=== PATIENT | female | born 2000 | race Caucasian/White ===

== ENCOUNTER 2024-05-12 10:02 | Outpatient (CLI) | payer OTHER, SELFPAY ==
--- NOTE | ~2024-05-12 | US_ITS ---
EXAMINATION: US OB <=14 wk fetus w TV DATE: 05/12/2024 10:23 INDICATION: Amenorrhea TECHNIQUE: Real-time pelvic ultrasound utilizing both a transvaginal and transabdominal probe was pe rformed. The interpreting radiologist was not present for the study. COMPARISON: None. FINDINGS: The uterus measures 9.4 x 6.2 x 4.9 cm. There is an intrauterine gestational sac. A yolk sac and fet al pole are identified. The crown rump length measures 2.4 cm, which correlates with an estimated ges tational age of 9 weeks and 0 days. heart motion is identified measuring 174 beats per minute ( bpm) by M-mode Doppler. The bilateral ovaries are not visualized. There is no free fluid in the pelvi s. IMPRESSION: 1. Single living fetus with heart rate of 174 bpm. 2. Gestational age by ultrasound of 9 weeks 0 day(s) +/- 6 day(s) with ultrasound estimated date of delivery (TONY) of 12/15/2024. Reviewed, dictated and finalized at location A. IMPRESSION: 1. Single living fetus with heart rate of 174 bpm. 2. Gestational age by ultrasound of 9 weeks 0 day(s) +/- 6 day(s) with ultraso und estimated date of delivery (TONY) of 12/15/2024.
== END 2024-05-12 10:03 | disposition home or self-care (01) ==
LOC: GOSHIMG 10:03
PROVIDERS: PCP Nurse Practitioner Obstetrics & Gynecology; Visit Provider Nurse Practitioner Obstetrics & Gynecology
DX: N91.2 Amenorrhea, unspecified (principal); Z3A.09 9 weeks gestation of pregnancy
CPT/HCPCS: 76801; 76817

== ENCOUNTER 2024-06-09 16:24 | Outpatient (CLI) | payer OTHER, SELFPAY ==
[2024-06-09 16:52] LABS: Basophils Percent Auto 0.2 % (0.2-1.2); Eosinophils Absolute Auto 0.1 K/mm3 (0-0.3); Eosinophils Percent Auto 0.6 % (0-4.4); Hematocrit 34.4 % (37.0-47.0); Hemoglobin 11.9 g/dL (12.0-15.0); Immature Granulocyte Absolute 0.06 K/mm3 (0.00-0.031); Immature Granulocyte Percent A 0.4 % (0-0.5); Lymphocytes Absolute Auto 3.32 K/mm3 (0.9-3.2); Lymphocytes Percent Auto 22.2 % (18.3-44.2); Mean Corpuscular HGB Conc 34.6 g/dl (32-36); Mean Corpuscular Hemoglobin 27.9 pg (26-34); Mean Corpuscular Volume 80.6 fl (80-100); Mean Platelet Volume 10.4 fl (7.4-10.4); Monocytes Absolute Auto 0.8 K/mm3 (0.1-0.6); Monocytes Percent Auto 5.2 % (2.6-8.5); Neutrophils Absolute Auto 10.7 K/mm3 (1.3-6.7); Neutrophils Percent Auto 71.4 % (45.5-73.1); Platelet Count Result 271 k/mm3 (150-375); Red Blood Count 4.27 M/mm3 (4.2-5.4); Red Cell Distribution Width 13.2 % (11.5-14.5)
[2024-06-09 17:00] LABS: Add Urine Microscopic? YES; Appearance Urine Cloudy (Clear); Bacteria Urine 4+ /hpf; Bilirubin Urine Negative (Negative); Blood Urine Negative (Negative); Color Urine Yellow (Yellow); Glucose Urine UA Negative (Negative); Ketones Urine Negative (Negative); Leukocyte Esterase Ur 1+ LEU/UL (Negative); Nitrate Urine Positive (Negative); Non Pathogenic Casts 0-2; Protein Urine Negative (Negative); Specific Grav Ur 1.023 (1.001-1.035); Squamous Epithelial Cell Urine Few /hpf (Few); pH Urine 7.5 (5.0-9.0)
[2024-06-09 18:01] LABS: Hepatitis B Surface Antigen Negative (Negative); Rubella IgG Antibody 23.6 IU/ML
[2024-06-09 18:03] LABS: HIV 1/2 Ab P24 Ag Result Negative (Negative)
[2024-06-09 18:10] LABS: Hepatitis C Virus Antibody Negative (Negative)
[2024-06-09 19:36] LABS: Hemoglobin A1C 5.1 % (<5.7)
[2024-06-10 12:49] LABS: Varicella IgG Antibody 4.09 S/CO
[2024-06-10 14:16] LABS: Rapid Plasma Reagin Non-Reactive (NonReactive)
[2024-06-10 19:03] LABS: Hematocrit 36.5 % (35.0-45.0); Hemoglobin 12.1 g/dL (11.7-15.5); MCH 27.6 pg (27.0-33.0); MCV 83.1 fL (80.0-100.0); RDW 13.2 % (11.0-15.0); Red Blood Cell Count 4.39 Million/uL (3.80-5.10)
== END 2024-06-09 16:25 | disposition home or self-care (01) ==
LOC: ANHLAB 16:25
PROVIDERS: PCP Nurse Practitioner Obstetrics & Gynecology; Visit Provider Obstetrics & Gynecology
DX: Z34.90 Encounter for supervision of normal pregnancy, unspecified, unspecified trimester (principal); Z3A.00 Weeks of gestation of pregnancy not specified
CPT/HCPCS: 36415; 81001; 83021; 83036; 85025; 86592; 86703; 86762; 86787; 86803; 86850; 86900; 86901; 87077; 87086; 87186; 87340; G0432

== ENCOUNTER 2024-06-11 09:40 | Emergency (ER) | payer OTHER, SELFPAY ==
[2024-06-11 09:48] VITALS: BP 128/84; PULSE 89; RESP 16; TEMP 36.6; O2SAT 100
--- NOTE | 2024-06-11 09:48 | ED.URI ---
HPI - URI/Sore Throat General Chief Complaint: Upper Respiratory Infection Stated Complaint: Sinus Infection Symptoms Time Seen by Provider: 06/11/24 09:48 Source: patient, RN notes reviewed and old records reviewed Mode of arrival: ambulatory Limitations: no limitations History of Present Illness HPI Narrative: 23 year old female who presents to express care with complaints of right sided facial pressure and right ear pain since yesterday with some cough noted this morning. Patient reports history of sinus infections in the past with some noted sinus congestion and drainage only on right side. 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 Patient reports that she has had some clear mucous production. Patient is 14 weeks . MD elicited complaint: cough, rhinorrhea, nasal congestion, sinus pain and other (right ear pain) Pertinent past history: sinusitis Onset (ago): day(s) (2) Severity: moderate Able to tolerate fluids by mouth: Yes Treatments prior to arrival: other (sudafed) Related Data Home Medications Medication Instructions Recorded Confirmed vitamin#30 30 mg iron-10 1 cap PO DAILY 04/30/24 06/11/24 mg iron-folic acid 1 mg-omg3 capsule aspirin 81 mg tablet 81 mg PO DAILY 06/11/24 06/11/24 Allergies Allergy/AdvReac Type Severity Reaction Status Date / Time No Known Allergies Allergy Verified 06/11/24 09:46 Review of Systems Review of Systems: CONSTITUTIONAL: Denies malaise, chills, sweats, or fever. EYES: Denies visual changes, redness, or discharge. ENT: Reports rhinorrhea, congestion, sinus pain, otalgia and no sore throat. CARDIOVASCULAR: Denies chest pain, palpitations, or edema. RESPIRATORY: Reports cough starting this morning..? Denies dyspnea. GASTROINTESTINAL: Denies abdominal pain, nausea, vomiting, diarrhea SKIN: Denies rash or itching. MUSCULOSKELETAL: Denies myalgia. NEUROLOGIC: Denies headache. All systems reviewed & are unremarkable except as noted in HPI and below PMFSH Social History Social History Smoking status: Never smoker Alcohol intake: never Substance use: never Comments At time of signature, agree with nursing past medical, surgical, social and family history. There is no relevant family history pertinent to the presenting complaint Exam Narrative: GENERAL: Well-appearing, well-nourished, and in no acute distress. HEAD: Normocephalic EYES: PERRLA, conjunctivae clear ENT: Nares clear, turbinates edematous and erythematous, clear discharge facial pressure right side of face with drainage right nares. Mucous membranes moist. TM pearly singer with dull light reflex bilaterally; no tragal tenderness. Oropharynx erythematous without lesions. Tonsils not enlarged and without exudate, no drooling, no hoarseness, no trismus, uvula midline.post nasal drainage NECK: Supple. No lymphadenopathy CHEST: Clear to auscultation, breath sounds equal. No wheezing, rhonchi, rales, or stridor. No respiratory distress, speaks in full sentences.occasional cough,SAO2 100% on room air HEART: Regular rate and rhythm. No murmur heard. SKIN: Warm, dry, no rash. NEURO: Alert and oriented x3. PSYCH: Normal mood and affect Course Course Emergency Course: Patient is aware of diagnosis, understands and agrees to treatment plan.? Anticipatory guidance given.? Patient agrees to follow-up as directed and is aware of reasons to seek care at the emergency department. Portions of this record may have been created with voice recognition software Level of Care: Express Care Visit Vital Signs Vital signs: Vital Signs Temperature 36.6 C 06/11/24 09:48 Pulse Rate 89 06/11/24 09:48 Respiratory Rate 16 06/11/24 09:48 Blood Pressure 128/84 06/11/24 09:48 Pulse Oximetry 100 06/11/24 09:48 Temperature 36.6 C 06/11/24 09:48 Pulse Rate 89 06/11/24 09:48 Respiratory Rate 16 06/11/24 09:48 Blood Pressure 128/84 06/11/24 09:48 Pulse Oximetry 100 06/11/24 09:48 Reviewed MDM - URI/Sore Throat MDM Narrative Medical decision making narrative: Differential diagnosis considered: Pierre virus, strep pharyngitis, allergic rhinitis, upper respiratory tract infection, sinusitis, rhinosinusitis, nasopharyngitis. viral pharyngitis, otitis media, otitis externa, pneumonia, bronchitis, viral cough syndrome, viral syndrome, and influenza.? Exam findings show no acute concerns or changes; patient is non-toxic appearing and is in no distress.? Patient is appropriate for outpatient treatment and follow-up. Differential Diagnosis Differential diagnosis: Likely upper respiratory infection, otitis media, sinusitis, viral infection and other (cough and congestion,) Lab Data Attestation: I reviewed the patient's lab results. Critical Care Time Critical Care Time Critical Care Time: No Discharge Plan Discharge Clinical Impression: Bacterial sinusitis, Otalgia of right ear Patient Disposition: Home, Self-Care Condition: Stable Instructions: Antibiotic Form, Sinusitis (ED) Additional Instructions: Increase fluids especially juices and water [id number] cough and cold medicine of your choice for your symptoms Zyrtec or Claritin daily Tylenol for any fever pain heat to the face 20-30 minutes 4-6 times a day for pain Salt water gargles, throat lozenges or throat sprays as desired Antibiotic as directed--finished the medication follow recommendations per NANOTECHNOLOG[employer] ENGINEERING TECHNICIAN of medications that are safe to take while If your symptoms persist, change or worsen significantly before you can contact your personal physician then please, without delay, go to the emergency department for further evaluation. Follow-up with PCP in 7-10 days or sooner if needed Follow up with PCP soon in regards to your blood pressure which is elevated above threshold for referral. Blood pressure above 120/80 may indicate pre-hypertension. 128 /84 Prescriptions: New amoxicillin 500 mg capsule 500 mg PO Q12H Qty: 20 0RF No Action Adult Low Dose Aspirin 81 mg Tablet 81 mg PO DAILY PNV #[id number] 30 mg iron-10 mg iron-1 mg capsule 1 cap PO DAILY Follow-up/Referrals: PHYSICIAN,[employer] DEVELOPER [Primary Care Provider] - Stand Alone Forms: Work/School Release IP Time of Disposition: 10:09 Quality Juanito Coma Scale Eyes: Open Verbal: Oriented and Alert Motor: Follows Commands [place] Coma Total Score: 15
== END 2024-06-11 10:17 | disposition home or self-care (01) ==
PROVIDERS: Emergency Provider Registered Nurse
DX: O99.512 Diseases of the respiratory system complicating pregnancy, second trimester (principal); J32.9 Chronic sinusitis, unspecified; O99.891 Other specified diseases and conditions complicating pregnancy; H92.01 Otalgia, right ear; Z3A.14 14 weeks gestation of pregnancy
CPT/HCPCS: 99213; G0463

== ENCOUNTER 2024-06-28 16:22 | Outpatient (CLI) | payer OTHER, SELFPAY | END 2024-06-28 16:23 | disposition home or self-care (01) | LOC: ANHLAB 16:24 | PROVIDERS: Visit Provider Obstetrics & Gynecology | DX: N39.0 Urinary tract infection, site not specified (principal) | CPT/HCPCS: 87086 ==

== ENCOUNTER 2024-07-21 00:45 | Observation (INO) | payer OTHER, SELFPAY ==
[2024-07-21 01:07] VITALS: BP 114/62; PULSE 102
[2024-07-21 02:04] LABS: Basophils Percent Auto 0.2 % (0.2-1.2); Eosinophils Percent Auto 0.2 % (0-4.4); Hematocrit 38.4 % (37.0-47.0); Immature Granulocyte Percent A 0.5 % (0-0.5); Lymphocytes Absolute Auto 0.88 K/mm3 (0.9-3.2); Lymphocytes Percent Auto 4.3 % (18.3-44.2); Mean Corpuscular HGB Conc 33.9 g/dl (32-36); Mean Corpuscular Hemoglobin 27.7 pg (26-34); Mean Corpuscular Volume 81.9 fl (80-100); Mean Platelet Volume 10.7 fl (7.4-10.4); Monocytes Absolute Auto 0.9 K/mm3 (0.1-0.6); Monocytes Percent Auto 4.2 % (2.6-8.5); Neutrophils Absolute Auto 18.6 K/mm3 (1.3-6.7); Neutrophils Percent Auto 90.6 % (45.5-73.1); Platelet Count Result 235 k/mm3 (150-375); Red Blood Count 4.69 M/mm3 (4.2-5.4); Red Cell Distribution Width 13.7 % (11.5-14.5); White Blood Count 20.6 K/mm3 (4.5-10.0)
[2024-07-21] MEDS: FAMOTIDINE 20 MG/2 ML VIAL IV PUSH (02:07)
[2024-07-21] MEDS: ONDANSETRON INJ 4 MG/2 ML VIAL IV PUSH ×3 (02:07→09:41)
[2024-07-21] MEDS: LACTATED RINGERS 1,000 ML 999 ML IV CONT (02:07)
[2024-07-21 02:14] LABS: Alanine Aminotransferase 18 U/L (6-35); Albumin Level 3.8 g/dL (3.5-5.1); Alkaline Phosphatase 104 U/L (38-126); Anion Gap 7 mmol/L (4-12); Aspartate Amino Transferase 25 U/L (14-36); Bilirubin,Total 0.6 mg/dL (0.2-1.3); Blood Urea Nitrogen 8 mg/dL (7-17); Calcium 9.2 mg/dL (8.4-10.2); Carbon Dioxide 19 mmol/L (22-30); Chloride 108 mmol/L (98-107); Estimated Glomerular Filt Rate > 60; Glucose 127 mg/dL (65-110); Potassium 3.9 mmol/L (3.4-5.0); Sodium 134 mmol/L (137-145)
[2024-07-21 03:13] LABS: Add Urine Microscopic? YES; Appearance Urine Cloudy (Clear); Bacteria Urine 3+ /hpf; Bilirubin Urine Negative (Negative); Blood Urine Negative (Negative); Color Urine Dark Yellow (Yellow); Glucose Urine UA Negative (Negative); Ketones Urine 2+ mg/dL (Negative); Leukocyte Esterase Ur Negative LEU/UL (Negative); Need Manual Microscopic Reviewed; Nitrate Urine Negative (Negative); Non Pathogenic Casts >20; Protein Urine 2+ mg/dL (Negative); Specific Grav Ur 1.028 (1.001-1.035); Squamous Epithelial Cell Urine Moderate /hpf (Few); Urobilinogen Urine 0.2 mg/dL (<2.0)
[2024-07-21] MEDS: LACTATED RINGERS 1,000 ML 125 ML IV CONT (03:40)
--- NOTE | 2024-07-21 04:16 | OBADM ---
This patient, Agnieszka Elmore, admitted to the OB room [facility] for observation. pt states she started to have abdominal pain after she ate dinner around 1900, she has been vomiting, having diarrhea. denies uterine contractions. Patient/family oriented to hospital policies and general routines including ID bracelet, bed and alarms, visiting hours, pain management, procedures, bathroom and other care routines, personal items, smoking policy, room service/diet, and visiting hours. Patient/Family are encouraged to report perceived risks to care and to ask questions if they do not understand what they are told or what they should do.
--- NOTE | 2024-07-21 04:30 | PC.NURSE ---
[address] Mendes notified pt admission for abdominal pain. reported pt complains upper abdominal pain with nausea vomiting. No uterine contractions and cramping. order received for IV fluid, zofran and pepcid at this time. observe over night.
--- NOTE | 2024-07-21 06:20 | PC.NURSE ---
Spoke to Dr. Mendes, updated pt condition. okay to discharge after 2nd IV fluid with Zofran Rx. follow up with Dr. Peñaloza on Friday. call office for further instruction.
[2024-07-21 07:35] VITALS: BP 116/61; PULSE 100
--- NOTE | 2024-07-22 10:13 | P.PNOB_ITS ---
OB - Triage/Final Diagnosis Visit Information Reason for evaluation: threatened labor Comments/Additional reasons for admission: I have assessed the risk for this patient, Agnieszka Elmore, and determined that she would benefit from observation care. Evaluation Laboratory results: Laboratory Tests 07/21/24 01:57 WBC 20.6 H RBC 4.69 Hgb 13.0 Hct 38.4 MCV 81.9 MCH 27.7 MCHC 33.9 RDW 13.7 Plt Count 235 MPV 10.7 H Immature Gran % (Auto) 0.5 Neut % (Auto) 90.6 H Lymph % (Auto) 4.3 L [place] % (Auto) 4.2 Eos % (Auto) 0.2 Baso % (Auto) 0.2 Lymph # (Auto) 0.88 L [place] # (Auto) 0.9 H Eos # (Auto) 0.0 Baso # (Auto) 0.0 Abs Immat Gran (auto) 0.10 H Absolute Neuts (auto) 18.6 H Absolute Nucleated RBC 0.000 Nucleated RBC % 0.0 Sodium 134 L Potassium 3.9 Chloride 108 H Carbon Dioxide 19 L Anion Gap 7 BUN 8 Creatinine 0.60 L Estim Creat Clear Calc Not Reportable Estimated GFR > 60 Glucose 127 H Calcium 9.2 Total Bilirubin 0.6 AST 25 ALT 18 Alkaline Phosphatase 104 Total Protein 7.0 Albumin 3.8 Urine Color Dark yellow Urine Appearance Cloudy H Urine pH 5.0 Ur Specific [place] 1.028 Urine Protein 2+ H Urine Glucose (UA) Negative Urine Ketones 2+ H Ur Blood (Man) Negative Urine Nitrate Negative Urine Bilirubin Negative Urine Urobilinogen 0.2 Add Ur Microanalysis Reviewed Leukocyte Esterase Rfl Negative Urine RBC 11-20 H Urine WBC 11-20 H Ur Squamous Epith Cells Moderate Urine Bacteria 3+ H Urine Casts >20
== END 2024-07-21 09:42 | disposition home or self-care (01) ==
PROVIDERS: Admitting Provider Obstetrics & Gynecology; Visit Provider Obstetrics & Gynecology
DX: O47.02 False labor before 37 completed weeks of gestation, second trimester (principal); Z3A.19 19 weeks gestation of pregnancy
CPT/HCPCS: 36415; 80053; 81001; 85025; 87086; 96361; 96374; 96375; 96376; G0378; G0379; J2405; J7120

== ENCOUNTER 2024-09-24 12:23 | Outpatient (CLI) | payer OTHER, SELFPAY ==
[2024-09-24 13:52] LABS: Hematocrit 31.8 % (37.0-47.0); Hemoglobin 10.4 g/dL (12.0-15.0); Mean Corpuscular HGB Conc 32.7 g/dl (32-36); Mean Corpuscular Hemoglobin 26.9 pg (26-34); Mean Corpuscular Volume 82.2 fl (80-100); Mean Platelet Volume 10.8 fl (7.4-10.4); Platelet Count Result 246 k/mm3 (150-375); Red Blood Count 3.87 M/mm3 (4.2-5.4); White Blood Count 12.8 K/mm3 (4.5-10.0)
[2024-09-24 14:05] LABS: Glucose 1 Hour PP 50gm Dose 153 mg/dL
== END 2024-09-24 12:24 | disposition home or self-care (01) ==
LOC: ANHLAB 12:23
PROVIDERS: Visit Provider Nurse Practitioner Obstetrics & Gynecology
DX: Z34.90 Encounter for supervision of normal pregnancy, unspecified, unspecified trimester (principal)
CPT/HCPCS: 36415; 82947; 85027

== ENCOUNTER 2024-10-15 07:02 | Outpatient (CLI) | payer OTHER, SELFPAY ==
--- OUTSIDE RECORDS SUMMARY | 2024-10-15 07:06 | XMS_ITS | Clinical Summary ---
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 Maternal and Ground [id number] [place] [phone] Yue Mullins MD Discharge Disposition: Home or Self Care 09/16/2024 3:30 PM HORSE RIDER - 09/16/2024 11:59 PM HORSE RIDER Hospital Encounter [facility] Maternal and Health [facility] [address] [place] [address] Cameron Mendoza MD Discharge Disposition: Home or Self Care 09/16/2024 Orders Only [facility] Maternal and Ground Floor [address] [place] [phone] Pavel Frye MD IUGR (intrauterine growth restriction) affecting care of mother, second trimester, fetus 2 (Primary Dx) 2024 External Device Data STL ABSTRACTION Provider, Abstract 08/19/2024 2:52 PM HORSE RIDER - 08/19/2024 11:59 PM HORSE RIDER Hospital Encounter [facility] [address] [place] [phone] Cameron Mendoza MD Discharge Disposition: Home or Self Care 08/19/2024 External Device Data STL ABSTRACTION Provider, Abstract 08/17/2024 External Device Data STL ABSTRACTION Provider, Abstract 08/10/2024 External Device Data STL ABSTRACTION Provider, Abstract 07/27/2024 External Device Data STL ABSTRACTION Provider, Abstract 07/22/2024 2:29 PM HORSE RIDER - 07/22/2024 11:59 PM HORSE RIDER Hospital Encounter [facility] [address] [place] [phone] Pavel Frye MD Discharge Disposition: Home or Self Care from Last 3 Months Social History Tobacco Use Types Packs/Day Years Used Date Smoking Tobacco: Never Assessed Comments Unknown Sex and Gender Information Value Date Recorded Sex Assigned at Not on file Legal Sex Female 7:28 AM HORSE RIDER Gender Identity Not on file Sexual Orientation Not on file Plan of Treatment Upcoming Encounters Date Type Department Care Team (Late st Contact Info) Description 10/15/2024 3:15 PM CDT Appointment [facility] Maternal and [facility] [address] [place] [address] [place] [address] Natalie Leon MD [address] [place] [address] [phone] Heaven Thomson MD [address] [place] [phone] Health Maintenance Due Date Last Done Comments HPV VACCINES (1 - 3-dose series) 2014 DTAP/TDAP/TD VACCINES (1 - Tdap) 2018 HEPATITIS B VACCINES (1 of 3 - 19+ 3-dose series) 08/28 CERVICAL CANCER SCREENING 2020 PAP SMEAR 2020 PAP SMEAR 2020 INFLUENZA VACCINE (#1) 2024 Preventative Visit- Commercial 07/28/2024 Procedures Procedure Name Priority Date/Time Associated Diagnosis Comments US OB FOLLOW UP + UMB ART Routine 09/27/2024 2:45 PM HORSE RIDER IUGR (intrauterine growth restriction) affecting care of mother, second trimester, fetus 1 US OB FOLLOW UP PER FETUS Routine 09/16/2024 4:09 PM HORSE RIDER Obesity affecting in third trimester, unspecified obesity type US OB FOLLOW UP PER FETUS Routine 08/19/2024 3:21 PM HORSE RIDER Obesity affecting in third trimester, unspecified obesity type US OB 14+ WKS SINGLE GEST Routine 07/22/2024 3:45 PM HORSE RIDER screening for malformation using ultrasonics from Last 3 Months Results * US OB FOLLOW UP + UMB ART (09/27/2024 2:45 PM HORSE RIDER) Anatomical Region Laterality Modality Pelvis Ultrasound 09/27/2024 2:17 PM HORSE RIDER Narrative 09/27/2024 3:08 PM HORSE RIDER STL FOLLOW UP ----- Pat. Name: MARY ELMORE Study Date: 09/27/2024 2:17pm Pat. NO: [id number] Referring MD: PAVEL FRYE MD Site: [facility] Advertising Display Rotator: Kalani Dai RDMS : 2000 Age: 24 ----- INDICATION ----- Maternal Obesity (BMI>40) Complicating Screening Follow-Up CODING ----- Diagnoses Z3A.29: Weeks of gestation Z36.2: Encounter for other screening follow-up O99.213: Obesity complicating Procedures 11195: Ultrasound, uterus, real time with image documentation, follow up, transabdominal approach per fetus 23809: Doppler velocimetry, ; umbilical artery HISTORY ----- OB History 1. Para 0 MATERNAL ASSESSMENT ----- Physical Exam Initial weight 95 kg, 210 lb. Initial BMI 41.01 kg/m METHOD ----- Transabdominal ultrasound examination ----- Liang . Number of fetuses: 1 DATING ----- LMP on: 03/04/2024 GA by LMP 29 w + 4 d TONY by LMP: 12/09/2024 GA by prior assessment 29 w + 4 d TONY by prior assessment: 12/09/2024 Ultrasound examination on: 09/27/2024 GA by U/S based upon: AC, BPD, EFW, Femur, HC GA by U/S 28 w + 3 d TONY by U/S: 12/17/2024 Method of dating: Restore dating from previous exam Assigned: based on stated TONY, selected on 07/22/2024 Assigned GA 29 w + 4 d Assigned TONY: 12/09/2024 BIOMETRY ----- BPD 71.7 mm 28w 5d 16% Hadlock OFD 92.7 mm 29w 6d 59% Vish HC 263.4 mm 28w 5d 4% Hadlock AC 248.4 mm 29w 0d 29% Hadlock Femur 52.0 mm 27w 5d 3% Hadlock HC / AC 1.06 35% Nicolaides Weight Calculation: EFW 1,248 g 28w 2d 12% Hadlock EFW (lb,oz) 2 lb 12 oz EFW by Hadlock ([id number]) Extremities / Bony Struc Biometry: FL / BPD 0.73 FL / HC 0.20 FL / AC 0.21 GENERAL EVALUATION ----- Cardiac activity present. FHR 155 bpm. movements: present. Presentation: cephalic Placenta: Placental site: anterior Umbilical cord: Cord vessels: 3 vessel cord. Amniotic fluid: Amount of AF: normal amount. MVP 6.3 cm. JIA 15.7 cm. Q1 4.8 cm, Q2 6.3 cm, Q3 2.6 cm, Q4 1.9 cm DOPPLER ----- Umbilical Artery: normal. Sampling site: midcord PI 1.04 65% Marcio RI 0.67 64% Marcio PS 45.85 cm/s 55% Ebbing ED 16.63 cm/s TAmax 30.24 cm/s 56% Ebbing MD 16.09 cm/s S / D 3.07 60% Marcio HR 161 bpm ANATOMY ----- The following structures appear normal: Head / Neck Cranium. Cavum septi pellucidi. Heart / Thorax Diaphragm. Abdomen Stomach. Kidneys. Bladder. sex: female. GROWTH OVERVIEW ----- Exam date GA BPD (mm) HC (mm) AC (mm) FL (mm) HL (mm) EFW (g) 07/22/2024 20w 0d 40.0 2% 156.3 2% 146.7 43% 31.8 38% 30.8 63% 310 32% 08/19/2024 24w 0d 53.8 4% 209.9 7% 188.6 29% 42.1 29% 605 23% 09/16/2024 28w 0d 66.7 10% 256.8 18% 221.3 9% 49.8 9% 985 8% 09/27/2024 29w 4d 71.7 16% 263.4 4% 248.4 29% 52.0 3% 1,248 12% COMMENT ----- Patient's name and date of were verified by the configuration developer prior to the exam IMPRESSION ----- Liang @ 29w 4d complicated by FGR on last ultrasound. - The biometry is consistent with the lower end of dates with the EFW at the 12% percentile, but the AC at the 29th percentile. - Amniotic fluid indices are within normal limits. - Limited anatomy is unremarkable. Review of the growth curve and curve of the AC suggest that the last measurements were erroneous. Without those measurements, today's ones continue on the growth curve. Today the femur length is dragging. Of note, the patient and her mother (in the room with her) are 5ft tall and the father of the baby is not tall either per patient report, suggesting this is constitutional. A follow up is scheduled in 2 weeks for short interval follow up to follow growth. Thank you for allowing us to participate in the care of this patient. Procedure Note Natalie Leon MD - 09/27/2024 [facility] FOLLOW UP ----- Pat. Name:Elicia ELMORE Date:09/27/2024 2:17pm Pat. NO: [id number] MD:PAVEL FRYE MD [facility]Kalani Dai RDMS :2000Age:24 ----- INDICATION ----- Maternal Obesity (BMI>40) Complicating Screening Follow-Up CODING ----- Diagnoses Z3A.29: Weeks of gestation Z36.2: Encounter for other screeningfollow-up O99.213: Obesity complicating Procedures 60826: Ultrasound, uterus, real time withimage documentation, follow up, transabdominal approach per fetus 66933: Doppler velocimetry, ; umbilicalartery HISTORY ----- OB History 1. Para 0 MATERNAL ASSESSMENT ----- Physical Exam Initial weight 95 kg, 210 lb. Initial BMI 41.01kg/m METHOD ----- Transabdominal ultrasound examination ----- Liang . Number of fetuses: 1 DATING ----- LMP on:03/04/2024 GA by LMP29 w + 4 d TONY by LMP:12/09/2024 GA by prior [id number] w + 4 d TONY by prior assessment:12/09/2024 Ultrasound examination on:09/27/2024 GA by U/S based upon:AC, BPD, EFW, Femur, HC GA by U/S28 w + 3 d TONY by U/S:12/17/2024 Method of dating:Restore dating from previous exam Assigned:based on stated TONY, selected on 07/22/2024 Assigned GA29 w + 4 d Assigned TONY:12/09/2024 BIOMETRY ----- BPD 71.7 mm 28w 5d 16%Hadlock OFD 92.7 mm 29w 6d 59%Vish HC 263.4 mm 28w 5d 4%Hadlock AC 248.4 mm 29w 0d 29%Hadlock Femur 52.0 mm 27w 5d 3%Hadlock HC / AC 1.06 35%Nicolaides Weight Calculation: EFW 1,248 g 28w 2d12% Hadlock EFW (lb,oz) 2 lb 12 oz EFW by Hadlock ([id number]-FL) Extremities / Bony Struc Biometry: FL / BPD 0.73 FL / HC 0.20 FL / AC 0.21 GENERAL EVALUATION ----- Cardiac activity present. FHR 155 bpm. movements: present.Presentation: cephalic Placenta: Placental site: anterior Umbilical cord: Cord vessels: 3 vessel cord. Amniotic fluid: Amount of AF: normal amount. MVP 6.3 cm. JIA 15.7 cm. Q14.8 cm, Q2 6.3 cm, Q3 2.6 cm, Q4 1.9 cm DOPPLER ----- Umbilical Artery: normal. Sampling site: midcord PI 1.04 65%Marcio RI 0.67 64%Marcio PS 45.85 cm/s 55%Ebbing ED 16.63 cm/s TAmax 30.24 cm/s 56%Ebbing MD 16.09 cm/s S / D 3.07 60%Marcio HR 161 bpm ANATOMY ----- The following structures appear normal: Head / Neck Cranium. Cavum septi pellucidi. Heart / Thorax Diaphragm. Abdomen Stomach. Kidneys. Bladder. sex: female. GROWTH OVERVIEW ----- Exam date GA BPD (mm) HC (mm) AC (mm) FL(mm) HL (mm) EFW (g) 07/22/2024 20w 0d 40.0 2% 156.3 2% 146.7 43%31.8 38% 30.8 63% 310 32% 08/19/2024 24w 0d 53.8 4% 209.9 7% 188.6 29%42.1 29% 605 23% 09/16/2024 28w 0d 66.7 10% 256.8 18% 221.3 9%49.8 9% 985 8% 09/27/2024 29w 4d 71.7 16% 263.4 4% 248.4 29%52.0 3% 1,248 12% COMMENT ----- Patient's name and date of were verified by the configuration developer prior tothe exam IMPRESSION ----- Liang @ 29w 4d complicated by FGR on last ultrasound. - The biometry is consistent with the lower end of dates with theEFW at the 12% percentile, but the AC at the 29th percentile. - Amniotic fluid indices are within normal limits. - Limited anatomy is unremarkable. Review of the growth curve and curve of the AC suggest that the lastmeasurements were erroneous. Without those measurements, today's ones continue on the growth curve. Today the femurlength is dragging. Of note, the patient and her mother (in the room with her) are 5ft tall and the father of the baby is not talleither per patient report, suggesting this is constitutional. A follow up is scheduled in 2 weeks for short interval follow up to followfetal growth. Thank you for allowing us to participate in the care of this patient. us Yue Mullins MD US ORDERABLES Final Resul t * US OB FOLLOW UP PER FETUS (09/16/2024 4:09 PM HORSE RIDER) Only the most recent of2 resultswithin the time period is included. Anatomical Region Laterality Modality Pelvis Ultrasound 09/16/2024 3:39 PM HORSE RIDER Narrative 09/16/2024 4:14 PM HORSE RIDER STL FOLLOW UP ----- Pat. Name: MARY ELMORE Study Date: 09/16/2024 3:39pm Pat. NO: [id number] Referring MD: PAVEL FRYE MD Site: [place] [employer] Display Rotator: Lakesha Matute RDMS : 2000 Age: 24 ----- INDICATION ----- Maternal Obesity (BMI>40) Complicating Screening Follow-Up CODING ----- Diagnoses O99.213: Obesity complicating Z3A.28: Weeks of gestation Z36.2: Encounter for other screening follow-up Z3A.28: Weeks of gestation O99.213: Obesity complicating Procedures 49746: Ultrasound, uterus, real time with image documentation, follow up, transabdominal approach per fetus HISTORY ----- OB History 1. Para 0 MATERNAL ASSESSMENT ----- Physical Exam Initial weight 95 kg, 210 lb. Initial BMI 41.01 kg/m METHOD ----- Transabdominal ultrasound examination ----- Liang . Number of fetuses: 1 DATING ----- GA by prior assessment 28 w + 0 d TONY by prior assessment: 12/09/2024 Ultrasound examination on: 09/16/2024 GA by U/S based upon: AC, BPD, EFW, Femur, HC GA by U/S 27 w + 0 d TONY by U/S: 12/16/2024 Method of dating: Restore dating from previous exam Assigned: based on stated TONY, selected on 07/22/2024 Assigned GA 28 w + 0 d Assigned TONY: 12/09/2024 BIOMETRY ----- BPD 66.7 mm 26w 6d 10% Hadlock OFD 93.0 mm 30w 0d 92% Vish HC 256.8 mm 27w 6d 18% Hadlock AC 221.3 mm 26w 4d 9% Hadlock Femur 49.8 mm 26w 6d 9% Hadlock HC / AC 1.16 83% Nicolaides Weight Calculation: EFW 985 g 26w 4d 8% Hadlock EFW (lb,oz) 2 lb 3 oz EFW by Hadlock ([id number]-FL) Head / Face / Neck Biometry: Stock Buyer 4.5 mm Extremities / Bony Struc Biometry: FL / BPD 0.75 FL / HC 0.19 FL / AC 0.23 GENERAL EVALUATION ----- Cardiac activity present. FHR 148 bpm. movements: present. Presentation: breech Placenta: Placental site: anterior Umbilical cord: Cord vessels: 3 vessel cord Amniotic fluid: Amount of AF: normal amount. MVP 6.1 cm. JIA 16.6 cm. Q1 4.1 cm, Q2 3.6 cm, Q3 6.1 cm, Q4 2.8 cm DOPPLER ----- Umbilical Artery: normal PI 1.31 93% Marcio RI 0.76 91% Marcio PS 46.81 cm/s 67% Ebbing ED 10.46 cm/s TAmax 25.89 cm/s 30% Ebbing MD 10.28 cm/s S / D 4.11 91% Marcio ANATOMY ----- The following structures appear normal: Head / Neck Cranium. Lateral ventricles. Cavum septi pellucidi. Heart / Thorax Diaphragm. Abdomen Stomach. Kidneys. Bladder. GROWTH OVERVIEW ----- Exam date GA BPD (mm) HC (mm) AC (mm) FL (mm) HL (mm) EFW (g) 07/22/2024 20w 0d 40.0 2% 156.3 2% 146.7 43% 31.8 38% 30.8 63% 310 32% 08/19/2024 24w 0d 53.8 4% 209.9 7% 188.6 29% 42.1 29% 605 23% 09/16/2024 28w 0d 66.7 10% 256.8 18% 221.3 9% 49.8 9% 985 8% COMMENT ----- Patient's name and date of were verified by the configuration developer prior to the exam IMPRESSION ----- Liang viable intrauterine at 28w 0d. Estimated weight is 985 g (8%ile), with abdominal circumference at 9%ile, which is consistent with growth restriction. Amniotic fluid volume is normal amount (amniotic fluid index = 16.6 cm, maximum vertical pocket = 6.1 cm). Umbilical artery indices are wnl at S/D = 4.11 (91%) with antegrade diastolic flow. Recommend growth, Doppler studies, MFM consultation in 2 weeks. Thank you for inviting us to participate in your patient's care Procedure Note Yue Mullins MD - 09/16/2024 STL FOLLOW UP ----- Pat. Name:Elicia ELMORE Date:09/16/2024 3:39pm Pat. NO: [id number] MD:PAVEL FRYE MD [facility]Lakesha Matute RDMS :2000Age:24 ----- INDICATION ----- Maternal Obesity (BMI>40) Complicating Screening Follow-Up CODING ----- Diagnoses O99.213: Obesity complicating Z3A.28: Weeks of gestation Z36.2: Encounter for other screeningfollow-up Z3A.28: Weeks of gestation O99.213: Obesity complicating Procedures 58914: Ultrasound, uterus, real time withimage documentation, follow up, transabdominal approach per fetus HISTORY ----- OB History 1. Para 0 MATERNAL ASSESSMENT ----- Physical Exam Initial weight 95 kg, 210 lb. Initial BMI 41.01kg/m METHOD ----- Transabdominal ultrasound examination ----- Liang . Number of fetuses: 1 DATING ----- GA by prior [id number] w + 0 d TONY by prior assessment:12/09/2024 Ultrasound examination on:09/16/2024 GA by U/S based upon:AC, BPD, EFW, Femur, HC GA by U/S27 w + 0 d TONY by U/S:12/16/2024 Method of dating:Restore dating from previous exam Assigned:based on stated TONY, selected on 07/22/2024 Assigned GA28 w + 0 d Assigned TONY:12/09/2024 BIOMETRY ----- BPD 66.7 mm 26w 6d 10%Hadlock OFD 93.0 mm 30w 0d 92%Vish HC 256.8 mm 27w 6d 18%Hadlock AC 221.3 mm 26w 4d 9%Hadlock Femur 49.8 mm 26w 6d 9%Hadlock HC / AC 1.16 83%Nicolaides Weight Calculation: EFW 985 g 26w 4d 8%Hadlock EFW (lb,oz) 2 lb 3 oz EFW by Hadlock ([id number]) Head / Face / Neck Biometry: Stock Buyer 4.5mm Extremities / Bony Struc Biometry: FL / BPD 0.75 FL / HC 0.19 FL / AC 0.23 GENERAL EVALUATION ----- Cardiac activity present. FHR 148 bpm. movements: present.Presentation: breech Placenta: Placental site: anterior Umbilical cord: Cord vessels: 3 vessel cord Amniotic fluid: Amount of AF: normal amount. MVP 6.1 cm. JIA 16.6 cm. Q14.1 cm, Q2 3.6 cm, Q3 6.1 cm, Q4 2.8 cm DOPPLER ----- Umbilical Artery: normal PI 1.31 93%Marcio RI 0.76 91%Marcio PS 46.81 cm/s 67%Ebbing ED 10.46 cm/s TAmax 25.89 cm/s 30%Ebbing MD 10.28 cm/s S / D 4.11 91%Marcio ANATOMY ----- The following structures appear normal: Head / Neck Cranium. Lateral ventricles. Cavum septipellucidi. Heart / Thorax Diaphragm. Abdomen Stomach. Kidneys. Bladder. GROWTH OVERVIEW ----- Exam date GA BPD (mm) HC (mm) AC (mm) FL(mm) HL (mm) EFW (g) 07/22/2024 20w 0d 40.0 2% 156.3 2% 146.7 43%31.8 38% 30.8 63% 310 32% 08/19/2024 24w 0d 53.8 4% 209.9 7% 188.6 29%42.1 29% 605 23% 09/16/2024 28w 0d 66.7 10% 256.8 18% 221.3 9%49.8 9% 985 8% COMMENT ----- Patient's name and date of were verified by the configuration developer prior tothe exam IMPRESSION ----- Liang viable intrauterine at 28w 0d. Estimated weight is 985 g (8%ile), with abdominal circumference at9%ile, which is consistent with growth restriction. Amniotic fluid volume is normal amount (amniotic fluid index = 16.6 cm,maximum vertical pocket = 6.1 cm). Umbilical artery indices are wnl at S/D = 4.11 (91%) with antegradediastolic flow. Recommend growth, Doppler studies, MFM consultation in 2 weeks. Thank you for inviting us to participate in your patient's care us Cameron Mendoza MD US ORDERABLES Final Re sult * US OB 14+ WKS SINGLE GEST (07/22/2024 3:45 PM HORSE RIDER) Anatomical Region Laterality Modality Pelvis Ultrasound 07/22/2024 2:57 PM HORSE RIDER Narrative 07/22/2024 3:53 PM HORSE RIDER STL COMP ----- Pat. Name: MARY ELMORE Study Date: 07/22/2024 2:57pm Pat. NO: [id number] Referring MD: PAVEL FRYE MD Site: [place] [employer] Display Rotator: Giana Dai RDMS : 2000 Age: 23 ----- INDICATION ----- Anatomy Survey Maternal Obesity (BMI>40) Complicating CODING ----- Diagnoses Z3A.20: Weeks of gestation O99.212: Obesity complicating Z36.3: Encounter for screening for malformations Procedures 47273: Ultrasound, uterus, real time with image documentation, and maternal evaluation plus detailed anatomic examination, transabdominal approach HISTORY ----- OB History 1. Para 0 MATERNAL ASSESSMENT ----- Physical Exam Weight 100 kg. Initial weight 95 kg, 210 lb. BMI 42.97 kg/m . Initial BMI 41.01 kg/m . Weight gain 5 kg, 10 lb METHOD ----- Transabdominal ultrasound examination ----- Liang . Number of fetuses: 1 DATING ----- Method of dating: based on stated TONY GA by prior assessment 20 w + 0 d TONY by prior assessment: 12/09/2024 Ultrasound examination on: 07/22/2024 GA by U/S based upon: AC, BPD, EFW, Femur, HC GA by U/S 19 w + 2 d TONY by U/S: 12/14/2024 Assigned: based on stated TONY, selected on 07/22/2024 Assigned GA 20 w + 0 d Assigned TONY: 12/09/2024 BIOMETRY ----- BPD 40.0 mm 18w 1d 2% Hadlock OFD 57.4 mm 20w 1d 54% Vish HC 156.3 mm 18w 4d 2% Hadlock Cerebellum tr 19.7 mm 19w 5d 42% López Nuchal fold 4.4 mm AC 146.7 mm 20w 0d 43% Hadlock Femur 31.8 mm 19w 6d 38% Hadlock Humerus 30.8 mm 20w 1d 63% Vish HC / AC 1.07 5% Nicolaides Weight Calculation: EFW 310 g 19w 4d 32% Hadlock EFW (lb,oz) 0 lb 11 oz EFW by Hadlock ([id number]-FL) Head / Face / Neck Biometry: Stock Buyer 4.7 mm CM 3.9 mm 17% Nicolaides Outer IOD 28.8 mm 18w 5d 8% Vish Extremities / Bony Struc Biometry: FL / BPD 0.80 >99% Hadlock FL / HC 0.20 92% Hadlock FL / AC 0.22 48% Hadlock GENERAL EVALUATION ----- Cardiac activity present. FHR 142 bpm. movements: present. Presentation: cephalic Placenta: Placental site: anterior. Placental iflj-yf-tidpmjyk os distance 58 mm Umbilical cord: Cord vessels: 3 vessel cord. Insertion site: placental insertion: normal Amniotic fluid: Amount of AF: normal amount. MVP 3.9 cm ANATOMY ----- The following structures appear normal: Head / Neck Cranium. Lateral ventricles. Choroid plexus. Midline falx. Cerebellum. Cisterna magna. Thalami. Nuchal fold. Face Lips. Profile. Nose. Palate. Orbits. Heart / Thorax RVOT view. LVOT view. 3-vessel view. Situs. Aortic arch view. Ductal arch view. Superior vena cava. Inferior vena cava. High short axis view. Cardiac rhythm. Diaphragm. Abdomen Abdominal wall. Stomach. Kidneys. Bladder. Spine Cervical spine. Thoracic spine. Lumbar spine. Sacral spine. Extremities / Arms. Right hand. Left hand. Legs. Right foot. Left foot. Skeleton The following structures could not be adequately visualized: Head / Neck Cavum septi pellucidi. Heart / Thorax 4-chamber view. 1-drmsro-ciiuabs view. MATERNAL STRUCTURES ----- Cervix Visualized Approach - Transabdominal: Cervical length 37.5 mm Right Ovary Suboptimal Left Ovary Suboptimal GROWTH OVERVIEW ----- Exam date GA BPD (mm) HC (mm) AC (mm) FL (mm) HL (mm) EFW (g) 07/22/2024 20w 0d 40.0 2% 156.3 2% 146.7 43% 31.8 38% 30.8 63% 310 32% COMMENT ----- Patient's name and date of were verified by the configuration developer before the exam IMPRESSION ----- Summary of Findings: A detailed anatomic survey was performed. Ultrasound was used to both evaluate structural abnormalities and to evaluate more subtle features of the face and extremities that could indicate aneuploidy. Detailed anatomic survey was performed due to obesity. 1. Single living fetus with gestational age of 20w 0d, (TONY = 12/09/2024), based on the reported clinical dates. 2. Detailed anatomic survey is incomplete due to position and maternal acoustic properties. No major structural abnormalities are identified. -Incomplete anatomy: CSP, 4ch, crossover, 3vtv 3. The amniotic fluid volume is wnl with maximum vertical pocket of 3.9 cm. 4. Estimated weight is 310 g (32%ile). 5. Placenta is anterior. 6. Cervical length measurement is 37.5 mm. The presence of a normal anatomic survey does not rule out genetic, chromosomal or structural anomalies. Recommendation: - Follow up ultrasound for growth and completion of anatomic views in 4 weeks. Thank you for inviting us to participate in your patient's care. Procedure Note Yue Mullins MD - 07/22/2024 STL COMP ----- Pat. Name:Elicia ELMORE Date:07/22/2024 2:57pm Pat. NO: [id number] MD:PAVEL FRYE MD [facility] Dai RDMS :2000Age:23 ----- INDICATION ----- Anatomy Survey Maternal Obesity (BMI>40) Complicating CODING ----- Diagnoses Z3A.20: Weeks of gestation O99.212: Obesity complicating Z36.3: Encounter for screening formalformations Procedures 26133: Ultrasound, uterus, real time withimage documentation, and maternal evaluation plus detailed anatomic examination,transabdominal approach HISTORY ----- OB History 1. Para 0 MATERNAL ASSESSMENT ----- Physical Exam Weight 100 kg. Initial weight 95 kg, 210 lb. BMI42.97 kg/m . Initial BMI 41.01 kg/m . Weight gain 5 kg, 10 lb METHOD ----- Transabdominal ultrasound examination ----- Liang . Number of fetuses: 1 DATING ----- Method of dating:based on stated TONY GA by prior [id number] w + 0 d TONY by prior assessment:12/09/2024 Ultrasound examination on:07/22/2024 GA by U/S based upon:AC, BPD, EFW, Femur, HC GA by U/S19 w + 2 d TONY by U/S:12/14/2024 Assigned:based on stated TONY, selected on 07/22/2024 Assigned GA20 w + 0 d Assigned TONY:12/09/2024 BIOMETRY ----- BPD 40.0 mm 18w 1d2% Hadlock OFD 57.4 mm 20w 1d54% Vish HC 156.3 mm 18w 4d2% Hadlock Cerebellum tr 19.7 mm 19w 5d42% López Nuchal fold 4.4 mm AC 146.7 mm 20w 0d43% Hadlock Femur 31.8 mm 19w 6d38% Hadlock Humerus 30.8 mm 20w 1d63% Vish HC / AC 1.07 5%Nicolaides Weight Calculation: EFW 310 g 19w 4d 32%Hadlock EFW (lb,oz) 0 lb 11 oz EFW by Hadlock ([id number]-FL) Head / Face / Neck Biometry: Stock Buyer 4.7 mm CM 3.9 mm 17%Nicolaides Outer IOD 28.8 mm 18w 5d 8%Vish Extremities / Bony Struc Biometry: FL / BPD 0.80 >99%Hadlock FL / HC 0.20 92%Hadlock FL / AC 0.22 48%Hadlock GENERAL EVALUATION ----- Cardiac activity present. FHR 142 bpm. movements: present.Presentation: cephalic Placenta: Placental site: anterior. Placental xigy-lg-ylbslunl os [id number] mm Umbilical cord: Cord vessels: 3 vessel cord. Insertion site: placentalinsertion: normal Amniotic fluid: Amount of AF: normal amount. MVP 3.9 cm ANATOMY ----- The following structures appear normal: Head / Neck Cranium. Lateral ventricles. Choroid plexus.Midline falx. Cerebellum. Cisterna magna. Thalami. Nuchal fold. Face Lips. Profile. Nose. Palate. Orbits. Heart / Thorax RVOT view. LVOT view. 3-vessel view. Situs. Aorticarch view. Ductal arch view. Superior vena cava. Inferior vena cava. High short axis view. Cardiacrhythm. Diaphragm. Abdomen Abdominal wall. Stomach. Kidneys. Bladder. Spine Cervical spine. Thoracic spine. Lumbar spine.Sacral spine. Extremities / Arms. Right hand. Left hand. Legs. Right foot.Left foot. Skeleton The following structures could not be adequately visualized: Head / Neck Cavum septi pellucidi. Heart / Thorax 4-chamber view. 9-utqthm-tuzyeuy view. MATERNAL STRUCTURES ----- Cervix Visualized Approach - Transabdominal: Cervical length 37.5mm Right Ovary Suboptimal Left Ovary Suboptimal GROWTH OVERVIEW ----- Exam date GA BPD (mm) HC (mm) AC (mm) FL(mm) HL (mm) EFW (g) 07/22/2024 20w 0d 40.0 2% 156.3 2% 146.7 43% 31.838% 30.8 63% 310 32% COMMENT ----- Patient's name and date of were verified by the configuration developer beforethe exam IMPRESSION ----- Summary of Findings: A detailed anatomic survey was performed.Ultrasound was used to both evaluate structural abnormalities and to evaluate more subtle features of the face andextremities that could indicate aneuploidy. Detailed anatomic survey was performed due to obesity. 1. Single living fetus with gestational age of 20w 0d, (TONY = 12/09/2024),based on the reported clinical dates. 2. Detailed anatomic survey is incomplete due to position andmaternal acoustic properties. No major structural abnormalities are identified. -Incomplete anatomy: CSP, 4ch, crossover, 3vtv 3. The amniotic fluid volume is wnl with maximum vertical pocket of 3.9cm. 4. Estimated weight is 310 g (32%ile). 5. Placenta is anterior. 6. Cervical length measurement is 37.5 mm. The presence of a normal anatomic survey does not rule out genetic,chromosomal or structural anomalies. Recommendation: - Follow up ultrasound for growth and completion of anatomic views in 4weeks. Thank you for inviting us to participate in your patient's care. us Pavel Frye MD ORDERABLES Final Result from Last 3 Months Insurance [id number]
--- OUTSIDE RECORDS SUMMARY | 2024-10-15 07:06 | XMS_ITS | Encounter Summary ---
Author Organization [facility] Address 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
[2024-10-15 07:31] LABS: Hemoglobin 11.3 g/dL (12.0-15.0); Mean Corpuscular HGB Conc 33.2 g/dl (32-36); Mean Corpuscular Hemoglobin 27.5 pg (26-34); Mean Corpuscular Volume 82.7 fl (80-100); Mean Platelet Volume 10.5 fl (7.4-10.4); Platelet Count Result 219 k/mm3 (150-375); Red Blood Count 4.11 M/mm3 (4.2-5.4); Red Cell Distribution Width 14.2 % (11.5-14.5); White Blood Count 13.1 K/mm3 (4.5-10.0)
[2024-10-15 07:45] LABS: Glucose Fasting Gestational 96 mg/dL (>/=95)
[2024-10-15 08:22] LABS: HIV 1/2 Ab P24 Ag Result Negative (Negative)
[2024-10-15 09:22] LABS: Glucose 1 Hour Gest 177 mg/dL (>/=180)
[2024-10-15 10:41] LABS: Glucose 2 Hour Gest 125 mg/dL (>/= 155)
[2024-10-15 11:45] LABS: Glucose 3 Hour Gest 141 mg/dL (>/=140)
[2024-10-19 10:48] LABS: RPR Screen NON-REACTIVE (NON-REACTIVE)
== END 2024-10-15 07:03 | disposition home or self-care (01) ==
LOC: ANHLAB 07:04
PROVIDERS: Nurse Practitioner Family; Visit Provider Nurse Practitioner Obstetrics & Gynecology
DX: O99.810 Abnormal glucose complicating pregnancy (principal); Z3A.00 Weeks of gestation of pregnancy not specified
CPT/HCPCS: 36415; 82951; 82952; 85027; 86592; 86703; G0432

== ENCOUNTER 2024-11-20 10:28 | Outpatient (RCR) | payer OTHER, SELFPAY ==
[2024-11-17 16:32] VITALS: BP 136/87; PULSE 76
--- NOTE | ~2024-11-20 | US_ITS ---
EXAMINATION: US OB BPP wo non-stress DATE: 11/20/2024 12:44 INDICATION: Maternal gestational diabetes during third trimester . TECHNIQUE: Real-time pelvic ultrasound was performed. The interpreting radiologist was not present fo r the study. COMPARISON: None. FINDINGS: There is a single living fetus in vertex presentation. The placenta is anterior and not low-lying. F etal heart rate is 142 beats per minute (bpm). Amniotic fluid volume is subjectively normal with norm al deepest vertical pocket measurement of 3.4 cm. Biophysical profile performed by the technologist: breathing (30 sec sustained breathing in 30 minutes): 2 out of 2 movement (3 gross body movements in 30 minutes): 2 out of 2 tone (one episode of pfmkgvz-mlqwnijmo-drmxzrq limb movement): 2 out of 2 Amniotic fluid pocket (2 cm): 2 out of 2 Total score: 8 out of 8 IMPRESSION: 1. Single living fetus in vertex presentation with heart rate of 142 bpm. 2. Biophysical profile 8 out of 8. Reviewed, dictated and finalized at location A.
--- NOTE | ~2024-11-20 | US_ITS ---
EXAMINATION: US OB BPP wo non-stress DATE: 11/17/2024 16:54 CDT INDICATION: Gestational diabetes TECHNIQUE: Real-time transabdominal obstetric ultrasound. FINDINGS: There is a single intrauterine gestation in vertex presentation. The placenta is anterior without placenta previa. Amniotic fluid index measures 16.1 cm. cardiac activity and movement is noted with a heart rate of 138 beats per minute. Biophysical profile: breathin of 2 movement: 2 of 2 tone: 2 of 2 Amniotic fluid pocket: 2 of 2 Total score: 8 of 8 IMPRESSION: 1. Single intrauterine gestation in vertex presentation. 2. Total biophysical profile score of 8 out of 8. Reviewed, dictated and finalized at location A.
[2024-11-20 11:57] LABS: Basophils Percent Auto 0.3 % (0.2-1.2); Eosinophils Absolute Auto 0.1 K/mm3 (0-0.3); Eosinophils Percent Auto 0.5 % (0-4.4); Hematocrit 35.1 % (37.0-47.0); Hemoglobin 11.6 g/dL (12.0-15.0); Immature Granulocyte Absolute 0.08 K/mm3 (0.00-0.031); Immature Granulocyte Percent A 0.6 % (0-0.5); Lymphocytes Absolute Auto 2.61 K/mm3 (0.9-3.2); Lymphocytes Percent Auto 19.4 % (18.3-44.2); Mean Corpuscular Hemoglobin 26.5 pg (26-34); Mean Corpuscular Volume 80.3 fl (80-100); Mean Platelet Volume 11.7 fl (7.4-10.4); Monocytes Absolute Auto 0.8 K/mm3 (0.1-0.6); Monocytes Percent Auto 6.3 % (2.6-8.5); Neutrophils Absolute Auto 9.8 K/mm3 (1.3-6.7); Neutrophils Percent Auto 72.9 % (45.5-73.1); Platelet Count Result 235 k/mm3 (150-375); Red Blood Count 4.37 M/mm3 (4.2-5.4); White Blood Count 13.4 K/mm3 (4.5-10.0)
[2024-11-20 12:07] LABS: Add Urine Microscopic? NO; Appearance Urine Clear (Clear); Bilirubin Urine Negative (Negative); Blood Urine Negative (Negative); Color Urine Yellow (Yellow); Glucose Urine UA Negative (Negative); Ketones Urine Negative (Negative); Leukocyte Esterase Ur Negative LEU/UL (Negative); Nitrate Urine Negative (Negative); Protein Urine Negative (Negative); Specific Grav Ur 1.015 (1.001-1.035); Urobilinogen Urine 0.2 mg/dL (<2.0); pH Urine 6.5 (5.0-9.0)
[2024-11-20 12:12] LABS: Alanine Aminotransferase 16 U/L (6-35); Albumin Level 3.2 g/dL (3.5-5.1); Alkaline Phosphatase 190 U/L (38-126); Anion Gap 9 mmol/L (4-12); Aspartate Amino Transferase 20 U/L (14-36); Bilirubin,Total 0.2 mg/dL (0.2-1.3); Blood Urea Nitrogen 6 mg/dL (7-17); Carbon Dioxide 20 mmol/L (22-30); Chloride 106 mmol/L (98-107); Estimated Glomerular Filt Rate > 60; Glucose 96 mg/dL (65-110); Potassium 3.8 mmol/L (3.4-5.0); Sodium 135 mmol/L (137-145); Uric Acid 6.3 mg/dL (2.5-7.5)
[2024-11-20 12:17] LABS: Total Protein Urine Random 6 mg/dL; Ur Ttl Prot Creatinine Ratio 0.06 mg/mg (0-0.20)
[2024-11-20 12:30] VITALS: BP 146/91; PULSE 77
== END 2024-11-30 17:56 | disposition home or self-care (01) ==
LOC: ANHOBOP 10:28
PROVIDERS: Student in an Organized Health Care Education/Training Program; Visit Provider Obstetrics & Gynecology
DX: O24.419 Gestational diabetes mellitus in pregnancy, unspecified control (principal); O36.5930 Maternal care for other known or suspected poor fetal growth, third trimester, not applicable or unspecified; Z3A.36 36 weeks gestation of pregnancy; Z3A.37 37 weeks gestation of pregnancy
CPT/HCPCS: 36415; 59025; 76819; 80053; 81003; 82570; 84156; 84550; 85025

== ENCOUNTER 2024-11-22 09:11 | Inpatient (IN) | payer OTHER, SELFPAY ==
[2024-11-22] VITALS (124 sets, daily range): BP systolic 110–192; BP diastolic 62–104; PULSE 72–177; TEMP 36.3–36.6; O2SAT 96–100; BMI 38.5; BMI 45.2
--- OUTSIDE RECORDS SUMMARY | 2024-11-22 09:49 | XMS_ITS | Clinical Summary ---
Author Organization [facility] Address [address] [place] [address] Phone Care Team Providers Care System Software Developer Name Role Phone Unavailable Primary Care Provider Unavailabl e Encounters Date Type Department Care Team Description 11/18/2024 3:00 PM CDT - 11/18/2024 11:59 PM CDT Hospital Encounter [facility] [address] [place] [address] Cameron Mendoza MD Discharge Disposition: Home or Self Care 11/09/2024 External Device Data STL ABSTRACTION Provider, Abstract 10/15/2024 2:52 PM CDT - 10/15/2024 11:59 PM CDT Hospital Encounter [facility] Maternal and Ground Floor [address] [facility] [address] [place] [phone] Natalie Leon MD Kraus, Elena Marie, MD Discharge Disposition: Home or Self Care 10/13/2024 External Device Data STL ABSTRACTION Provider, Abstract 10/13/2024 External Device Data STL ABSTRACTION Provider, Abstract 10/02/2024 External Device Data STL ABSTRACTION Provider, Abstract 10/01/2024 External Device Data STL ABSTRACTION Provider, Abstract 09/28/2024 External Device Data STL ABSTRACTION Provider, Abstract 09/27/2024 1:25 PM REED PRESS FEEDER - 09/27/2024 11:59 PM REED PRESS FEEDER Hospital Encounter [facility] Maternal and Ground Floor [address] [facility] [address] [place] [address] Yue Mullins MD Discharge Disposition: Home or Self Care 09/16/2024 3:30 PM REED PRESS FEEDER - 09/16/2024 11:59 PM REED PRESS FEEDER Hospital Encounter [facility] [place] [address] [place] [address] Cameron Mendoza MD Discharge Disposition: Home or Self Care 09/16/2024 Orders Only [facility] Maternal and Ground Floor [address] [facility] [address] [place] [address] Pavel Frye MD IUGR (intrauterine growth restriction) affecting care of mother, second trimester, fetus 2 (Primary Dx) 2024 External Device Data STL ABSTRACTION Provider, Abstract from Last 3 Months Social History Tobacco Use Types Packs/Day Years Used Date Smoking Tobacco: Never Assessed Comments Unknown Sex and Gender Information Value Date Recorded Sex Assigned at Not on file 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 Gender Identity Not on file Sexual Orientation Not on file Plan of Treatment Health Maintenance Due Date Last Done Comments HPV VACCINES (1 - 3-dose series) 2014 DTAP/TDAP/TD VACCINES (1 - Tdap) 2018 HEPATITIS B VACCINES (1 of 3 - 19+ 3-dose series) 08/28 CERVICAL CANCER SCREENING 2020 HPV/Cotest (21-29) 2020 PAP SMEAR 2020 INFLUENZA VACCINE (#1) 2024 Procedures Procedure Name Priority Date/Time Associated Diagnosis Comments US OB FOLLOW UP PER FETUS Routine 11/18/2024 3:38 PM CDT Encounter for maternal care for suspected poor growth in eubanks in third trimester US OB FOLLOW UP PER FETUS Routine 10/15/2024 3:48 PM CDT Small for dates affecting management of mother, third trimester, fetus 1 US OB FOLLOW UP + UMB ART Routine 09/27/2024 2:45 PM REED PRESS FEEDER IUGR (intrauterine growth restriction) affecting care of mother, second trimester, fetus 1 US OB FOLLOW UP PER FETUS Routine 09/16/2024 4:09 PM REED PRESS FEEDER Obesity affecting in third trimester, unspecified obesity type from Last 3 Months Results * US OB FOLLOW UP PER FETUS (11/18/2024 3:38 PM CDT) Only the most recent of3 resultswithin the time period is included. Anatomical Region Laterality Modality Pelvis Ultrasound 11/18/2024 3:18 PM CDT Narrative 11/18/2024 3:39 PM CDT STL FOLLOW UP ----- Pat. Name: MARY ELMORE Study Date: 11/18/2024 3:18pm Pat. NO: [id number] Referring MD: PAVEL FRYE MD Site: [place] [employer]: Giana Dai RDMS : 2000 Age: 24 ----- INDICATION ----- Screening Follow-Up Maternal Obesity (BMI>40) Complicating CODING ----- Diagnoses Z3A.37: Weeks of gestation Z36.2: Encounter for other screening follow-up O99.213: Obesity complicating Z3A.37: Weeks of gestation O99.213: Obesity complicating Procedures 53897: Ultrasound, uterus, real time with image documentation, follow up, transabdominal approach per fetus HISTORY ----- OB History 1. Para 0 MATERNAL ASSESSMENT ----- Physical Exam Weight 104 kg. Initial weight 95 kg, 210 lb. BMI 44.92 kg/m . Initial BMI 41.01 kg/m . Weight gain 9 kg, 20 lb METHOD ----- Transabdominal ultrasound examination ----- Ebuanks . Number of fetuses: 1 DATING ----- LMP on: 03/04/2024 GA by LMP 37 w + 0 d TONY by LMP: 12/09/2024 GA by prior assessment 37 w + 0 d TONY by prior assessment: 12/09/2024 Ultrasound examination on: 11/18/2024 GA by U/S based upon: AC, BPD, EFW, Femur, HC GA by U/S 35 w + 3 d TONY by U/S: 12/20/2024 Method of dating: Restore dating from previous exam Assigned: based on stated TONY, selected on 07/22/2024 Assigned GA 37 w + 0 d Assigned TONY: 12/09/2024 BIOMETRY ----- BPD 86.8 mm 35w 0d 14% Hadlock OFD 111.8 mm 37w 6d 57% Vish HC 316.9 mm 35w 4d 5% Hadlock AC 317.0 mm 35w 4d 25% Hadlock Femur 68.7 mm 35w 2d 11% Hadlock HC / AC 1.00 42% Nicolaides Weight Calculation: EFW 2,686 g 35w 3d 20% Hadlock EFW (lb,oz) 5 lb 15 oz EFW by Hadlock ([id number]) Extremities / Bony Struc Biometry: FL / BPD 0.79 FL / HC 0.22 FL / AC 0.22 GENERAL EVALUATION ----- Cardiac activity present. FHR 162 bpm. movements: present. Presentation: cephalic Placenta: Placental site: anterior Umbilical cord: Cord vessels: 3 vessel cord Amniotic fluid: Amount of AF: normal amount. MVP 6.1 cm. JIA 17.8 cm. Q1 5.3 cm, Q2 2.8 cm, Q3 3.6 cm, Q4 6.1 cm ANATOMY ----- The following structures appear normal: Head / Neck Cranium. Lateral ventricles. Choroid plexus. Midline falx. Cavum septi pellucidi. Cerebellum. Cisterna magna. Heart / Thorax 4-chamber view. RVOT view. LVOT view. Diaphragm. Abdomen Stomach. Kidneys. Bladder. sex: female. [...] 4% 248.4 29% 52.0 3% 1,248 12% 10/15/2024 32w 1d 74.1 1% 280.0 1% 287.1 66% 58.2 5% 1,793 24% 11/18/2024 37w 0d 86.8 14% 316.9 5% 317.0 25% 68.7 11% 2,686 20% COMMENT ----- Patient's name and date of were verified by the label sewer prior to the exam IMPRESSION ----- 1. Single living fetus with a gestational age of 37w 0d, based on the reported clinical dates. 2. Current growth parameters are consistent with the stated EDC. The size is appropriate for gestational age at 20% percentile (2686 g). 3. Unremarkable limited anatomy noted. A detailed anatomy cannot be performed secondary to advanced gestational age. However, there are no gross structural abnormalities noted. 4. The amniotic fluid is normal for gestational age (MVP:6.1 cm , JIA:17.8 cm ). 5. Anterior placenta. No previa/not low-lying. 6. Cephalic presentation. Recommendations: - Continue surveillance as planned. Thank you for allowing us to participate in the care of this patient. Procedure Note Ariella Quintero MD - 11/18/2024 STL FOLLOW UP ----- Khadijah. Name:Elicia ELMORE Date:11/18/2024 3:18pm Pat. NO: [id number] MD:PAVEL FRYE [facility]Giana Dai RDMS :2000Age:24 ----- INDICATION ----- Screening Follow-Up Maternal Obesity (BMI>40) Complicating CODING ----- Diagnoses Z3A.37: Weeks of gestation Z36.2: Encounter for other screeningfollow-up O99.213: Obesity complicating Z3A.37: Weeks of gestation O99.213: Obesity complicating Procedures 24916: Ultrasound, uterus, real time withimage documentation, follow up, transabdominal approach per fetus HISTORY ----- OB History 1. Para 0 MATERNAL ASSESSMENT ----- Physical Exam Weight 104 kg. Initial weight 95 kg, 210 lb. BMI44.92 kg/m . Initial BMI 41.01 kg/m . Weight gain 9 kg, 20 lb METHOD ----- Transabdominal ultrasound examination ----- Eubanks . Number of fetuses: 1 DATING ----- LMP on:03/04/2024 GA by [id number] w + 0 d TONY by LMP:12/09/2024 GA by prior [id number] w + 0 d TONY by prior assessment:12/09/2024 Ultrasound examination on:11/18/2024 GA by U/S based upon:AC, BPD, EFW, Femur, HC GA by U/S35 w + 3 d TONY by U/S:12/20/2024 Method of dating:Restore dating from previous exam Assigned:based on stated TONY, selected on 07/22/2024 Assigned GA37 w + 0 d Assigned TONY:12/09/2024 BIOMETRY ----- BPD 86.8 mm 35w 0d 14%Hadlock OFD 111.8 mm 37w 6d 57%Vish HC 316.9 mm 35w 4d 5%Hadlock AC 317.0 mm 35w 4d 25%Hadlock Femur 68.7 mm 35w 2d 11%Hadlock HC / AC 1.00 42%Nicolaides Weight Calculation: EFW 2,686 g 35w 3d20% Hadlock EFW (lb,oz) 5 lb 15 oz EFW by Hadlock ([id number]) Extremities / Bony Struc Biometry: FL / BPD 0.79 FL / HC 0.22 FL / AC 0.22 GENERAL EVALUATION ----- Cardiac activity present. FHR 162 bpm. movements: present.Presentation: cephalic Placenta: Placental site: anterior Umbilical cord: Cord vessels: 3 vessel cord Amniotic fluid: Amount of AF: normal amount. MVP 6.1 cm. JIA 17.8 cm. Q15.3 cm, Q2 2.8 cm, Q3 3.6 cm, Q4 6.1 cm ANATOMY ----- The following structures appear normal: Head / Neck Cranium. Lateral ventricles. Choroid plexus.Midline falx. Cavum septi pellucidi. Cerebellum. Cisterna magna. Heart / Thorax 4-chamber view. RVOT view. LVOT view. Diaphragm. Abdomen Stomach. Kidneys. Bladder. sex: female. [...] 263.4 4% 248.4 29%52.0 3% 1,248 12% 10/15/2024 32w 1d 74.1 1% 280.0 1% 287.1 66%58.2 5% 1,793 24% 11/18/2024 37w 0d 86.8 14% 316.9 5% 317.0 25%68.7 11% 2,686 20% COMMENT ----- Patient's name and date of were verified by the label sewer prior tothe exam IMPRESSION ----- 1. Single living fetus with a gestational age of 37w 0d, based on thereported clinical dates. 2. Current growth parameters are consistent with the stated EDC. The fetalsize is appropriate for gestational age at 20% percentile (2686 g). 3. Unremarkable limited anatomy noted. A detailed anatomycannot be performed secondary to advanced gestational age. However, there are no gross structural abnormalities noted. 4. The amniotic fluid is normal for gestational age (MVP:6.1 cm , JIA:17.8cm ). 5. Anterior placenta. No previa/not low-lying. 6. Cephalic presentation. Recommendations: - Continue surveillance as planned. Thank you for allowing us to participate in the care of this patient. us Cameron Mendoza MD US ORDERABLES Final Re sult * US OB FOLLOW UP + UMB ART (09/27/2024 2:45 PM REED PRESS FEEDER) Anatomical Region Laterality Modality Pelvis Ultrasound 09/27/2024 2:17 PM REED PRESS FEEDER Narrative 09/27/2024 3:08 PM REED PRESS FEEDER STL FOLLOW UP ----- Pat. Name: MARY ELMORE Study Date: 09/27/2024 2:17pm Pat. NO: [id number] Referring MD: PAVEL FRYE MD Site: [facility] [employer]: Kalani Dai RDMS : 2000 Age: 24 ----- INDICATION ----- Maternal Obesity (BMI>40) Complicating Screening Follow-Up CODING ----- Diagnoses Z3A.29: Weeks of gestation Z36.2: Encounter for other screening follow-up O99.213: Obesity complicating Procedures 77675: Ultrasound, uterus, real time with image documentation, follow up, transabdominal approach per fetus 96589: Doppler velocimetry, ; umbilical artery HISTORY ----- OB History 1. Para 0 MATERNAL ASSESSMENT ----- Physical Exam Initial weight 95 kg, 210 lb. Initial BMI 41.01 kg/m METHOD ----- Transabdominal ultrasound examination ----- Eubanks . Number of fetuses: 1 DATING ----- [...] 2 lb 12 oz EFW by Hadlock ([id number]) Extremities / Bony Struc Biometry: FL / [...] and date of were verified by the label sewer prior to the exam IMPRESSION ----- Eubanks @ 29w 4d complicated by FGR on [...] Procedure Note Natalie Leon MD - 09/27/2024 [facility] FOLLOW UP ----- Pat. Name:Ramses ELMOREmiguelito Date:09/27/2024 2:17pm Pat. NO: [id number] MD:PAVEL FRYE MD [facility]:Kalani Dai RDMS :2000Age:24 ----- INDICATION ----- Maternal Obesity (BMI>40) Complicating Screening Follow-Up CODING ----- Diagnoses Z3A.29: Weeks of gestation Z36.2: Encounter for other screeningfollow-up O99.213: Obesity complicating Procedures 46290: Ultrasound, uterus, real time withimage documentation, follow up, transabdominal approach per fetus 93127: Doppler velocimetry, ; umbilicalartery HISTORY ----- OB History 1. Para 0 MATERNAL ASSESSMENT ----- Physical Exam Initial weight 95 kg, 210 lb. Initial BMI 41.01kg/m METHOD ----- Transabdominal ultrasound examination ----- Eubanks . Number of fetuses: 1 DATING ----- LMP on:03/04/2024 GA by [id number] w + 4 d TONY by LMP:12/09/2024 GA by prior [id number] w + 4 d TONY by prior [...] 2 lb 12 oz EFW by Hadlock ([id number]) Extremities / Bony Struc Biometry: FL / [...] and date of were verified by the label sewer prior tothe exam IMPRESSION ----- Eubanks @ 29w 4d complicated by FGR on [...] of this patient. us Yue Mullins MD ORDERABLES Final Resul t from Last 3 Months Insurance [facility] [id number]
[2024-11-22 09:55] LABS: Basophils Percent Auto 0.2 % (0.2-1.2); Eosinophils Absolute Auto 0.1 K/mm3 (0-0.3); Eosinophils Percent Auto 0.6 % (0-4.4); Hematocrit 33.3 % (37.0-47.0); Hemoglobin 10.9 g/dL (12.0-15.0); Immature Granulocyte Absolute 0.05 K/mm3 (0.00-0.031); Immature Granulocyte Percent A 0.4 % (0-0.5); Lymphocytes Absolute Auto 2.25 K/mm3 (0.9-3.2); Lymphocytes Percent Auto 18.6 % (18.3-44.2); Mean Corpuscular HGB Conc 32.7 g/dl (32-36); Mean Corpuscular Hemoglobin 26.1 pg (26-34); Mean Corpuscular Volume 79.7 fl (80-100); Mean Platelet Volume 11.7 fl (7.4-10.4); Monocytes Absolute Auto 0.6 K/mm3 (0.1-0.6); Neutrophils Absolute Auto 9.1 K/mm3 (1.3-6.7); Neutrophils Percent Auto 75.2 % (45.5-73.1); Platelet Count Result 225 k/mm3 (150-375); Red Blood Count 4.18 M/mm3 (4.2-5.4); Red Cell Distribution Width 13.2 % (11.5-14.5); White Blood Count 12.1 K/mm3 (4.5-10.0)
[2024-11-22 09:58] LABS: Add Urine Microscopic? YES; Appearance Urine Cloudy (Clear); Bilirubin Urine Negative (Negative); Blood Urine Negative (Negative); Color Urine Yellow (Yellow); Glucose Urine UA Negative (Negative); Ketones Urine Negative (Negative); Leukocyte Esterase Ur 1+ LEU/UL (Negative); Nitrate Urine Negative (Negative); Protein Urine Trace mg/dL (Negative); Specific Grav Ur 1.013 (1.001-1.035); Urobilinogen Urine 0.2 mg/dL (<2.0)
[2024-11-22 10:08] LABS: Alanine Aminotransferase 16 U/L (6-35); Albumin Level 3.1 g/dL (3.5-5.1); Alkaline Phosphatase 196 U/L (38-126); Anion Gap 8 mmol/L (4-12); Aspartate Amino Transferase 24 U/L (14-36); Bilirubin,Total 0.3 mg/dL (0.2-1.3); Blood Urea Nitrogen 8 mg/dL (7-17); Calcium 8.8 mg/dL (8.4-10.2); Carbon Dioxide 19 mmol/L (22-30); Chloride 107 mmol/L (98-107); Estimated CRCL calculation 127 ml/min; Estimated Glomerular Filt Rate > 60; Glucose 105 mg/dL (65-110); Potassium 3.8 mmol/L (3.4-5.0); Sodium 134 mmol/L (137-145); Uric Acid 7.3 mg/dL (2.5-7.5)
--- NOTE | 2024-11-22 10:56 | PC.NURSE ---
Dr. Peñaloza called. Notified of lab results, PCR still pending at this time. Blood pressures discussed, most recent 150/96. Order received to perform a SVE.
--- NOTE | 2024-11-22 11:10 | PC.NURSE ---
SVE 1cm, 50%, minus 2.
--- NOTE | 2024-11-22 11:12 | PC.NURSE ---
Called Dr. Peñaloza and notified of cervical exam. Dr. Peñaloza wants to induce pt. Phone call transferred to pt. room 116 to discuss induction with the pt. Awaiting call back for induction orders.
[2024-11-22 11:18] LABS: RBC Urine 0-2 /hpf (0-2)
--- NOTE | 2024-11-22 11:20 | PC.NURSE ---
Dr. Peñaloza called back with orders to induce. current BP in severe range, pt. to direct admit to labor and delivery. Orders received to place cervidil x1 and pull in 12 hours then start low dose pit. Call back if pt. has a 2nd severe BP.
[2024-11-22 11:22] LABS: Squamous Epithelial Cell Urine Moderate /hpf (Few)
[2024-11-22 11:44] LABS: Creatinine Urine 123.1 mg/dL; Total Protein Urine Random 11 mg/dL; Ur Ttl Prot Creatinine Ratio 0.09 mg/mg (0-0.20)
[2024-11-22] MEDS: LABETALOL HCL INJ 100 MG/20 ML VIAL 20 MG IV PUSH (12:03)
[2024-11-22] MEDS: DINOPROSTONE 10 MG VAG INSERT VAGINAL (12:10)
--- NOTE | 2024-11-22 12:22 | LDADM ---
This patient, Agnieszka Elmore, was admitted to Labor/Delivery/Recovery 106 on 11/22/24 at 09:11. Plans for labor, pain management and were discussed with patient. Patient/family oriented to hospital policies and general routines including ID bracelet, bed and alarms, visiting hours, pain management, procedures, bathroom and other care routines, personal items, smoking policy, room service/diet and guest tray routines, security routines, and visiting hours. Patient/Family are encouraged to report perceived risks to care and to ask questions if they do not understand what they are told or what they should do. See OBIX for further documentation.
[2024-11-22 13:49] LABS: Syphilis IgG/IgM Antibody Negative (Negative)
[2024-11-22 14:03] LABS: HIV 1/2 Ab P24 Ag Result Negative (Negative)
[2024-11-22 14:24] LABS: Glucose Point of Care 80 mg/dl (65-105)
--- NOTE | 2024-11-22 14:41 | PM.IMHP ---
H&P: HPI History of Present Illness Date/Time: 11/22/24 14:41 Chief Complaint: Headache Narrative: She is a 24 y/o with an EDC of12/09/24. She presented to L and D today with c/o headache. It is not a severe headache. On L and D she had isolated elevated bp. She was seen over the weekend for blood pressure and PIH lab work up negative. Labs today normal. Uric acid elevated. P/C ratio normal. She has met criteria for gestational hypertension and was recommended for induction. After being informed of induction her blood pressure increased to severe range and she was given Labetolol which her pressures did go to normal with one dose of Labetolol. PNC significant for diet controlled gestational diabetes. She also had one u/s which had IUGR with f/u suggesting that EFW was in error. Subsequent ultrasounds with EFW wnl. GBS neg. Review of Systems Review of Systems: All systems reviewed & are unremarkable except as noted in HPI and below Constitutional: Constitutional: Reports no additional constitutional complaints and Denies headache(s) Eyes: Eyes: Denies spots in vision ENT: Reports system reviewed and no additional complaints, except as documented and Denies headache(s) Cardiovascular: Cardiovascular: Denies chest pain and Denies dyspnea Respiratory: Respiratory: Denies dyspnea Gastrointestinal: Gastrointestinal: Reports no additional gastrointestinal complaints Genitourinary: Genitourinary: Reports amenorrhea Musculoskeletal: Musculoskeletal: Reports no additional musculoskeletal complaints Integumentary/Breasts: Skin/Breast: Denies breast mass and Denies rash Neurologic: Denies headache(s) Psychiatric: Psychiatric: Reports no additional psychiatric complaints [facility] Family History Family History Other Patient denies significant medical history Social History Social History Smoking status: Never smoker Alcohol intake: never Substance use: never Do You Feel Safe in your Home?: Yes Lack of Transportation: No Lack of Food: Never True Current Housing: I Have Housing Concerned About Future Housing: No Difficulty Paying Gas/Electric Bills: No Difficulty Paying for Meds: No Currently Unemployed: No Education: Bachelor's Degree Difficulty w/ Childcare or Family Care: No Spiritual care concerns: No Meds Home Medications and Allergies Home Medications ?Medication ?Instructions ?Recorded ?Confirmed ?Type vitamin#30 30 mg iron-10 1 cap PO DAILY 04/30/24 11/22/24 History mg iron-folic acid 1 mg-omg3 capsule aspirin 81 mg tablet 81 mg PO DAILY 06/11/24 11/22/24 History blood-glucose sensor (Dexcom G7 #1 ea 10/22/24 11/19/24 Rx Sensor device) ferrous sulfate 325 mg (65 mg 325 mg PO DAILY 10/22/24 11/22/24 History iron) tablet Allergies Allergy/AdvReac Type Severity Reaction Status Date / Time No Known Allergies Allergy Verified 11/22/24 13:10 Vital Signs Vital Signs - 24 hr 11/22/24 09:30 11/22/24 09:30 11/22/24 09:32 Temperature Pulse Rate 79 79 78 Blood Pressure 154/86 H 142/88 H Blood Pressure [Left Arm] 154/86 H Pulse Oximetry Oxygen Delivery 11/22/24 09:45 11/22/24 10:00 11/22/24 10:15 Temperature Pulse Rate 73 90 83 Blood Pressure 149/88 H 143/89 H 148/89 H Blood Pressure [Left Arm] Pulse Oximetry Oxygen Delivery 11/22/24 10:30 11/22/24 10:45 11/22/24 11:00 Temperature Pulse Rate 84 81 76 Blood Pressure 142/95 H 150/96 H 151/90 H Blood Pressure [Left Arm] Pulse Oximetry Oxygen Delivery 11/22/24 11:15 11/22/24 11:31 11/22/24 11:43 Temperature Pulse Rate 99 78 80 Blood Pressure 192/104 H 167/101 H 159/97 H Blood Pressure [Left Arm] Pulse Oximetry Oxygen Delivery 11/22/24 11:45 11/22/24 11:45 11/22/24 12:00 Temperature 97.4 F L Pulse Rate 83 99 Blood Pressure 157/76 H Blood Pressure [Left Arm] 192/101 H Pulse Oximetry 99 Oxygen Delivery 11/22/24 12:01 11/22/24 12:03 11/22/24 12:05 Temperature Pulse Rate 88 91 Blood Pressure 156/82 H Blood Pressure [Left Arm] Pulse Oximetry 97 Oxygen Delivery 11/22/24 12:10 11/22/24 12:15 11/22/24 12:20 Temperature Pulse Rate 85 79 Blood Pressure 110/71 117/74 Blood Pressure [Left Arm] Pulse Oximetry 96 98 97 Oxygen Delivery 11/22/24 12:22 11/22/24 12:25 11/22/24 12:30 Temperature Pulse Rate 78 Blood Pressure 130/80 Blood Pressure [Left Arm] Pulse Oximetry 98 97 Oxygen Delivery Room Air 11/22/24 12:35 11/22/24 12:40 11/22/24 12:41 Temperature Pulse Rate 75 Blood Pressure 135/79 Blood Pressure [Left Arm] Pulse Oximetry 97 97 Oxygen Delivery 11/22/24 12:45 11/22/24 12:50 11/22/24 12:55 Temperature Pulse Rate 83 Blood Pressure 112/92 H Blood Pressure [Left Arm] Pulse Oximetry 98 98 98 Oxygen Delivery 11/22/24 13:00 11/22/24 13:05 11/22/24 13:10 Temperature Pulse Rate 177 H 75 Blood Pressure 129/94 H 126/82 Blood Pressure [Left Arm] Pulse Oximetry 98 98 98 Oxygen Delivery 11/22/24 13:15 11/22/24 13:20 11/22/24 13:25 Temperature Pulse Rate 80 Blood Pressure 131/72 Blood Pressure [Left Arm] Pulse Oximetry 99 98 98 Oxygen Delivery 11/22/24 13:30 11/22/24 13:35 11/22/24 13:40 Temperature Pulse Rate 85 Blood Pressure 136/62 Blood Pressure [Left Arm] Pulse Oximetry 98 98 98 Oxygen Delivery 11/22/24 13:45 11/22/24 13:50 11/22/24 13:55 Temperature Pulse Rate 82 Blood Pressure 125/70 Blood Pressure [Left Arm] Pulse Oximetry 97 99 98 Oxygen Delivery 11/22/24 14:00 11/22/24 14:05 11/22/24 14:10 Temperature Pulse Rate 82 83 Blood Pressure 135/63 124/67 Blood Pressure [Left Arm] Pulse Oximetry 98 98 98 Oxygen Delivery Exam Const: General: no acute distress Eyes: General: appearance normal, both eyes and all related structures Resp: Effort & Inspection: normal respiratory effort Cardio: Rate: regular rate GI: Other: Gravid no fundal tenderness no right upper quadrant pain Skin: General skin exam: no rashes or lesions noted Neuro: Cognition (Neuro): normal cognition Extrem: General: normal to inspection Psych: Mental Status: mental status grossly normal H&P: Results Labs Labs: Short CBC 11/22/24 Range/Units 09:24 WBC 12.1 H (4.5-10.0) K/mm3 Hgb 10.9 L (12.0-15.0) g/dL Hct 33.3 L (37.0-47.0) % Plt Count 225 (150-375) k/mm3 BMP 11/22/24 09:24 Sodium 134 L Potassium 3.8 Chloride 107 Carbon Dioxide 19 L BUN 8 Creatinine 0.70 Glucose 105 Calcium 8.8 Liver Function 11/22/24 Range/Units 09:24 Total Bilirubin 0.3 (0.2-1.3) mg/dL AST 24 (14-36) U/L ALT 16 (6-35) U/L Alkaline Phosphatase 196 H (38-126) U/L Albumin 3.1 L (3.5-5.1) g/dL Urine 11/22/24 Range/Units 09:24 Urine Color Yellow (Yellow) Urine Appearance Cloudy H (Clear) Urine pH 6.0 (5.0-9.0) Ur Specific [place] 1.013 (1.001-1.035) Urine Protein Trace (Negative) mg/dL Urine Glucose (UA) Negative (Negative) mg/dL Assessment and Plan Assessment and plan (1) Gestational hypertension: Code(s): O13.9 - Gestational [-induced] hypertension without significant proteinuria, unspecified trimester Status: Acute Assessment and Plan: She did have severe range isolated blood pressure treated. Admit. Cervidil induction. Will plan on Magnesium in active labor. (2) Gestational diabetes: Code(s): O24.419 - Gestational diabetes mellitus in , unspecified control Status: Acute Assessment and Plan: Will monitor blood sugars. (3) GBS carrier: Code(s): Z22.330 - Carrier of Group B streptococcus Status: Acute Assessment and Plan: Ampicillin with start of Pitocin.
[2024-11-22 18:56] LABS: Glucose Point of Care 104 mg/dl (65-105)
[2024-11-22 22:18] LABS: Glucose Point of Care 101 mg/dl (65-105)
--- NOTE | 2024-11-22 22:20 | WPDANESEPP ---
Anes - Eval Pre Procedure Procedure: labor pain management Date/Time: 11/22/24 22:20 Surgeon: Anabela Preop Diagnosis: pain during labor Pre Op Diagnosis: Headache Patient Data Age: 24 Gender: F Height: 1.52 m Weight: 105 kg Last Vital Signs Temp 97.6 F 11/22/24 18:00 Pulse 88 11/22/24 22:00 BP 161/95 H 11/22/24 22:00 Pulse Ox 99 11/22/24 22:19 O2 Del Method Room Air 11/22/24 12:22 Allergies Allergy/AdvReac Type Severity Reaction Status Date / Time No Known Allergies Allergy Verified 11/22/24 13:10 Home Medications ?Medication ?Instructions ?Recorded ?Confirmed ?Type vitamin#30 30 mg iron-10 1 cap PO DAILY 04/30/24 11/22/24 History mg iron-folic acid 1 mg-omg3 capsule aspirin 81 mg tablet 81 mg PO DAILY 06/11/24 11/22/24 History blood-glucose sensor (Dexcom G7 #1 ea 10/22/24 11/19/24 Rx Sensor device) ferrous sulfate 325 mg (65 mg 325 mg PO DAILY 10/22/24 11/22/24 History iron) tablet Laboratory Tests 11/22/24 11/22/24 11/22/24 09:24 12:19 14:21 WBC 12.1 H K/mm3 (4.5-10.0) RBC 4.18 L M/mm3 (4.2-5.4) Hgb 10.9 L g/dL (12.0-15.0) Hct 33.3 L % (37.0-47.0) MCV 79.7 L fl (80-100) MCH 26.1 pg (26-34) MCHC 32.7 g/dl (32-36) RDW 13.2 % (11.5-14.5) Plt Count 225 k/mm3 (150-375) MPV 11.7 H fl (7.4-10.4) Immature Gran % (Auto) 0.4 % (0-0.5) Neut % (Auto) 75.2 H % (45.5-73.1) Lymph % (Auto) 18.6 % (18.3-44.2) [place] % (Auto) 5.0 % (2.6-8.5) Eos % (Auto) 0.6 % (0-4.4) Baso % (Auto) 0.2 % (0.2-1.2) Lymph # (Auto) 2.25 K/mm3 (0.9-3.2) [place] # (Auto) 0.6 K/mm3 (0.1-0.6) Eos # (Auto) 0.1 K/mm3 (0-0.3) Baso # (Auto) 0.0 K/mm3 (0.0-0.1) Abs Immat Gran (auto) 0.05 H K/mm3 (0.00-0.031) Absolute Neuts (auto) 9.1 H K/mm3 (1.3-6.7) Absolute Nucleated RBC 0.000 K/mm3 (0.0-0.012) Nucleated RBC % 0.0 % (0.0-0.2) Sodium 134 L mmol/L (137-145) Potassium 3.8 mmol/L (3.4-5.0) Chloride 107 mmol/L (98-107) Carbon Dioxide 19 L mmol/L (22-30) Anion Gap 8 mmol/L (4-12) BUN 8 mg/dL (7-17) Creatinine 0.70 mg/dL (0.7-1.0) Estim Creat Clear Calc 127 ml/min Estimated GFR > 60 (59 - ) Glucose 105 mg/dL (65-110) POC Capillary Glucose 80 mg/dl (65-105) Uric Acid 7.3 mg/dL (2.5-7.5) Calcium 8.8 mg/dL (8.4-10.2) Total Bilirubin 0.3 mg/dL (0.2-1.3) AST 24 U/L (14-36) ALT 16 U/L (6-35) Alkaline Phosphatase 196 H U/L (38-126) Total Protein 6.0 L g/dL (6.3-8.2) Albumin 3.1 L g/dL (3.5-5.1) Urine Color Yellow (Yellow) Urine Appearance Cloudy H (Clear) Urine pH 6.0 (5.0-9.0) Ur Specific [place] 1.013 (1.001-1.035) Urine Protein Trace mg/dL (Negative) Urine Glucose (UA) Negative mg/dL (Negative) Urine Ketones Negative mg/dL (Negative) Ur Blood (Man) Negative (Negative) Urine Nitrate Negative (Negative) Urine Bilirubin Negative (Negative) Urine Urobilinogen 0.2 mg/dL (<2.0) Leukocyte Esterase Rfl 1+ H QUYNH/UL (Negative) Urine RBC 0-2 /hpf (0-2) Urine WBC 11-20 H /hpf (0-3) Ur Squamous Epith Cells Moderate H /hpf (Few) U Random Total Protein 11 mg/dL Urine Creatinine 123.1 mg/dL Protein/Creat Ratio 2 0.09 mg/mg (0-0.20) Syphilis IgG/IgM Ab Negative (Negative) HIV 1&2 Ab/P24 Ag 4thGn Negative (Negative) Blood Type O Positive Antibody Screen Negative 11/22/24 11/22/24 18:25 22:14 WBC RBC Hgb Hct MCV MCH MCHC RDW Plt Count MPV Immature Gran % (Auto) Neut % (Auto) Lymph % (Auto) [place] % (Auto) Eos % (Auto) Baso % (Auto) Lymph # (Auto) [place] # (Auto) Eos # (Auto) Baso # (Auto) Abs Immat Gran (auto) Absolute Neuts (auto) Absolute Nucleated RBC Nucleated RBC % Sodium Potassium Chloride Carbon Dioxide Anion Gap BUN Creatinine Estim Creat Clear Calc Estimated GFR Glucose POC Capillary Glucose 104 mg/dl 101 mg/dl (65-105) (65-105) Uric Acid Calcium Total Bilirubin AST ALT Alkaline Phosphatase Total Protein Albumin Urine Color Urine Appearance Urine pH Ur Specific [place] Urine Protein Urine Glucose (UA) Urine Ketones Ur Blood (Man) Urine Nitrate Urine Bilirubin Urine Urobilinogen Leukocyte Esterase Rfl Urine RBC Urine WBC Ur Squamous Epith Cells U Random Total Protein Urine Creatinine Protein/Creat Ratio 2 Syphilis IgG/IgM Ab HIV 1&2 Ab/P24 Ag 4thGn Blood Type Antibody Screen Patient hx anesthesia problems: none Family hx anesthesia problems: none Results Review: All pre-operative results and documents have been reviewed as part of the pre-operative evaluation. FORMERLY [facility] Family History Family History Other Patient denies significant medical history Social History Social History Smoking status: Never smoker Alcohol intake: never Substance use: never Do You Feel Safe in your Home?: Yes Lack of Transportation: No Lack of Food: Never True Current Housing: I Have Housing Concerned About Future Housing: No Difficulty Paying Gas/Electric Bills: No Difficulty Paying for Meds: No Currently Unemployed: No Education: Bachelor's Degree Difficulty w/ Childcare or Family Care: No Spiritual care concerns: No Exam Day of Procedure 11/22/24 22:20 Patient weight: morbidly obese Neurological: alert and oriented
[2024-11-23] VITALS (363 sets, daily range): BP systolic 81–178; BP diastolic 34–140; PULSE 29–192; TEMP 36.2–37.1; O2SAT 79–100
[2024-11-23] MEDS: LACTATED RINGERS 1,000 ML 125 ML IV CONT ×3 (04:06→23:56)
[2024-11-23] MEDS: OXYTOCIN 30 UNITS/NS 500 ML 30 UNITS/500 ML BAG IV CONT (04:07)
[2024-11-23] MEDS: AMPICILLIN 2 GM/NS 100 ML 2 GM/100 ML BAG IVPB (04:07)
[2024-11-23] MEDS: AMPICILLIN 1 GM/NS 50 ML 1 GM/50 ML BAG IVPB ×5 (07:54→23:56)
[2024-11-23 08:23] LABS: Glucose Point of Care 83 mg/dl (65-105)
[2024-11-23 10:36] LABS: Glucose Point of Care 110 mg/dl (65-105)
--- NOTE | 2024-11-23 13:01 | PM.OBPNVD ---
OB - PN: Subj Subjective Date/time seen: 11/23/24 0810 Interval history: fht 145, cat 1, occasional ctx, pitocin and Ampicillin started, cervix 1.5/60/-2 ant soft, patient did not tolerate exam well, continue pitocin. OB - PN: Obj Data Labs 11/22/24 09:24 11/22/24 09:24 Labs: Laboratory Results - last 24 hr 11/22/24 11/22/24 11/22/24 12:19 14:21 18:25 POC Capillary Glucose 80 104 Syphilis IgG/IgM Ab Negative HIV 1&2 Ab/P24 Ag 4thGn Negative Blood Type O Positive Antibody Screen Negative 11/22/24 11/23/24 11/23/24 22:14 08:19 10:33 POC Capillary Glucose 101 83 110 H Syphilis IgG/IgM Ab HIV 1&2 Ab/P24 Ag 4thGn Blood Type Antibody Screen OB - PN A/P Time Spent With Patient Time: Total time spent is greater than 50% in coordination of care (as documented) at patient's floor/unit and/or counseling patient:
--- NOTE | 2024-11-23 13:02 | PM.OBPNVD ---
OB - PN: Subj Subjective Date/time seen: 11/23/24 13:02 Interval history: fht 145, cat 2, cervix 2/60/-2, she had prior SROM, clear, IUPC placed. OB - PN: Obj Data Labs 11/22/24 09:24 11/22/24 09:24 Labs: Laboratory Results - last 24 hr 11/22/24 11/22/24 11/22/24 12:19 14:21 18:25 POC Capillary Glucose 80 104 Syphilis IgG/IgM Ab Negative HIV 1&2 Ab/P24 Ag 4thGn Negative Blood Type O Positive Antibody Screen Negative 11/22/24 11/23/24 11/23/24 22:14 08:19 10:33 POC Capillary Glucose 101 83 110 H Syphilis IgG/IgM Ab HIV 1&2 Ab/P24 Ag 4thGn Blood Type Antibody Screen OB - PN A/P Time Spent With Patient Time: Total time spent is greater than 50% in coordination of care (as documented) at patient's floor/unit and/or counseling patient:
[2024-11-23 14:09] LABS: Glucose Point of Care 70 mg/dl (65-105)
--- NOTE | 2024-11-23 16:14 | PM.OBPNVD ---
OB - PN: Subj Subjective Date/time seen: 11/23/24 16:14 Interval history: fht 135, cat 1, cervix 2//-2, continue pitocin. OB - PN: Obj Data Labs 11/22/24 09:24 11/22/24 09:24 Labs: Laboratory Results - last 24 hr 11/22/24 11/22/24 11/23/24 18:25 22:14 08:19 POC Capillary Glucose 104 101 83 11/23/24 11/23/24 10:33 14:06 POC Capillary Glucose 110 H 70 OB - PN A/P Time Spent With Patient Time: Total time spent is greater than 50% in coordination of care (as documented) at patient's floor/unit and/or counseling patient:
[2024-11-23] MEDS: FAMOTIDINE 20 MG/2 ML VIAL IV PUSH (16:39)
[2024-11-23 17:58] LABS: Glucose Point of Care 72 mg/dl (65-105)
[2024-11-23] MEDS: ONDANSETRON INJ 4 MG/2 ML VIAL IV PUSH (19:27)
[2024-11-23] MEDS: ACETAMINOPHEN 500 MG TABLET 1000 MG PO (20:01)
[2024-11-23 22:13] LABS: Glucose Point of Care 85 mg/dl (65-105)
[2024-11-24] VITALS (250 sets, daily range): BP systolic 85–196; BP diastolic 39–119; PULSE 62–169; RESP 12–18; TEMP 36.1–37.7; O2SAT 77–100
[2024-11-24 01:58] LABS: Glucose Point of Care 75 mg/dl (65-105)
[2024-11-24] MEDS: AMPICILLIN 1 GM/NS 50 ML 1 GM/50 ML BAG IVPB ×2 (04:00→08:00)
[2024-11-24] MEDS: ONDANSETRON INJ 4 MG/2 ML VIAL IV PUSH ×2 (04:39→13:00)
[2024-11-24 06:35] LABS: Glucose Point of Care 81 mg/dl (65-105)
--- NOTE | 2024-11-24 07:46 | PM.OBPNVD ---
OB - PN: Subj Subjective Date/time seen: 11/24/24 07:46 Interval history: fht 135, cat 2, cervix ant rim, c, -1, continue pitocin OB - PN: Obj Data Labs 11/22/24 09:24 11/22/24 09:24 Labs: Laboratory Results - last 24 hr 11/23/24 11/23/24 11/23/24 08:19 10:33 14:06 POC Capillary Glucose 83 110 H 70 11/23/24 11/23/24 11/24/24 17:54 22:07 01:55 POC Capillary Glucose 72 85 75 11/24/24 06:32 POC Capillary Glucose 81 OB - PN A/P Time Spent With Patient Time: Total time spent is greater than 50% in coordination of care (as documented) at patient's floor/unit and/or counseling patient:
[2024-11-24] MEDS: LACTATED RINGERS 1,000 ML 125 ML IV CONT (07:52)
[2024-11-24] MEDS: MAGNESIUM SULF 4 GM/WATER100ML 4 GM/100 ML BAG IVPB (08:29)
[2024-11-24] MEDS: MAGNESIUM SULF 20GM/WATER500ML 500 ML 50 MG IV CONT (09:05)
[2024-11-24 10:26] LABS: Glucose Point of Care 87 mg/dl (65-105)
[2024-11-24] MEDS: ACETAMINOPHEN 500 MG TABLET 1000 MG PO (12:04)
--- NOTE | 2024-11-24 12:23 | PM.OBPNVD ---
OB - PN: Subj Subjective Date/time seen: 11/24/24 12:23 Interval history: Patient dilated to complete. She pushed for approximately an hour, second stage labor significant for late decelerations with pushing. station with caput +1. Stopped pushing, Pitocin stopped. She also had suboptimal analgesia from epidural. Anesthesia consulted. Her pain improved. Resumed pushing, Pitocin turned back on. She had good effort with pushing. Early decelerations with pushing. Temp 100. fht 150. On exam with pushing, no change in position, 0 station,caput +2. She was informed that she has had adequate pushing and no change in station. Recommend section for failure to descend. Discussed risk benefits of section and risk of continuing to attempt vaginal delivery. She agrees with section. OB - PN: Obj Data Labs 11/22/24 09:24 11/22/24 09:24 Labs: Laboratory Results - last 24 hr 11/23/24 11/23/24 11/23/24 14:06 17:54 22:07 POC Capillary Glucose 70 72 85 11/24/24 11/24/24 11/24/24 01:55 06:32 10:23 POC Capillary Glucose 75 81 87 OB - PN A/P Time Spent With Patient Time: Total time spent is greater than 50% in coordination of care (as documented) at patient's floor/unit and/or counseling patient:
[2024-11-24] MEDS: AZITHROMYCIN 500 MG/NS 250 ML 500 MG/250 ML BAG 250 MG IVPB (12:24)
[2024-11-24] MEDS: FAMOTIDINE 20 MG/2 ML VIAL IV PUSH (13:00)
--- NOTE | 2024-11-24 13:06 | P.PNAN_ITS ---
Anes - Initial Pre Proc Eval Procedure: Operation Date: 11/24/24 12:30 Proposed Procedures p Section - Pavel Peñaloza MD Date/Time: 11/24/24 13:06 Surgeon: Pavel Peñaloza MD Pre Op Diagnosis: Headache Patient Data Age: 24 Gender: F Height: 1.52 m Weight: 105 kg Last Vital Signs Temp 36.9 C 11/24/24 06:30 Pulse 92 11/24/24 12:30 BP 128/76 11/24/24 12:30 Pulse Ox 97 11/24/24 12:33 O2 Del Method Room Air 11/22/24 18:00 Allergies Allergy/AdvReac Type Severity Reaction Status Date / Time No Known Allergies Allergy Verified 11/22/24 13:10 Home Medications ?Medication ?Instructions ?Recorded ?Confirmed ?Type vitamin#30 30 mg iron-10 1 cap PO DAILY 04/30/24 11/22/24 History mg iron-folic acid 1 mg-omg3 capsule aspirin 81 mg tablet 81 mg PO DAILY 06/11/24 11/22/24 History blood-glucose sensor (Dexcom G7 #1 ea 10/22/24 11/19/24 Rx Sensor device) ferrous sulfate 325 mg (65 mg 325 mg PO DAILY 10/22/24 11/22/24 History iron) tablet Laboratory Tests 11/23/24 11/23/24 11/23/24 14:06 17:54 22:07 POC Capillary Glucose 70 mg/dl 72 mg/dl 85 mg/dl (65-105) (65-105) (65-105) 11/24/24 11/24/24 11/24/24 01:55 06:32 10:23 POC Capillary Glucose 75 mg/dl 81 mg/dl 87 mg/dl (65-105) (65-105) (65-105) Patient hx anesthesia problems: none Family hx anesthesia problems: none Results Review: All pre-operative results and documents have been reviewed as part of the pre-operative evaluation. [facility] Family History Family History Other Patient denies significant medical history Social History Social History Smoking status: Never smoker Alcohol intake: never Substance use: never Do You Feel Safe in your Home?: Yes Lack of Transportation: No Lack of Food: Never True Current Housing: I Have Housing Concerned About Future Housing: No Difficulty Paying Gas/Electric Bills: No Difficulty Paying for Meds: No Currently Unemployed: No Education: Bachelor's Degree Difficulty w/ Childcare or Family Care: No Spiritual care concerns: No Anes - Eval Final PreProcedure Day of Procedure 11/24/24 13:06 Patient weight: morbidly obese Heart: regular rate and rhythm Lungs: clear to auscultation Airway: Mallampati scale class II Neurological: alert and oriented ASA classification: III Emergent: no Anesthetic plan: proceed Anesthesia type and monitoring: regional epidural and standard monitoring Results Review: All pre-operative results and documents have been reviewed as part of the pre- operative evaluation. Informed Consent: The patient's anesthetic plan and its attendant risks and benefits were discussed with the patient/family/POA. Questions were solicited and answers provided to the satisfaction of the patient/family/POA.
[2024-11-24] MEDS: MORPHINE SULFATE INJ (*CRX) 10 MG/ML AMP 2 MG IV PUSH (15:36)
--- NOTE | 2024-11-24 15:49 | P.PCNOB_ITS ---
OB - Delivery Note Procedure Delivery date: 11/24/24 Pre-op diagnosis: Arrest of Decent, Gestational Hypertension ( with episodic severe range blood pressures) and Positive Group B Strep (GBS) Post-op Diagnosis: Same Induction method: Per Cervidil Protocol Delivery augmentation: Pitocin Delivery monitor: External FHT, External Uterine, Internal FHT and Internal Uterine Prior to decision for section, [facility] labor guidelines were considered and discussed with the patient and staff. Decision made to proceed with the section.: Yes Procedure Performed: Primary Surgeon: Pavel Peñaloza MD Anesthesia type: Epidural Description of Procedure/Findings: After informed consent, risks and benefits of the procedure was discussed with the patient. The patient was taken to the operating room where she was placed in the dorsal lithotomy position with leftward tilt. After the prior placed epidural anesthesia was found to be adequate, she was then prepped and draped in the usual sterile fashion. A Pfannenstiel skin incision was made with a scalpel and carried through to the underlying layer of fascia. The fascia was then nicked in the midline, extending bilaterally. The fascia was dissected off the rectus muscles bluntly and sharply, superiorly and inferiorly. The rectus muscles were in the midline, and peritoneum was identified and entered bluntly. The pelvic organs were visualized. The bladder blade was then inserted. The vesicouterine peritoneum was identified and entered sharply with Metzenbaum scissors and extended bilaterally and then the bladder flap was created digitally. The low transverse uterine incision was then made with the scalpel and extended with bilateral index fingers in a crescent-shaped fashion. The head was delivered and the rest of the was delivered. loose nuchal cord manually reduced.The cord was clamped twice and cut. The was then handed off to the awaiting pediatric staff. The placenta was then delivered manually. The uterine cavity was sponge curretted. The uterus was then exteriorized. The uterine incision was then closed with 0 vicryl in a running locked fashion. Hemostasis noted. A second layer of 0 vicryl In interrupted [id number] fashion. Posterior cul-de-sac was cleared of debris. The uterus was then returned to the abdomen. Bilateral gutters were cleared off all clots and debris. The uterine incision was noted to be hemostatic. Interceed placed on uterine incision and vertically on front of uterus. The muscle bellies were inspected and noted to be hemostatic. The subfascial layer was noted to be hemostatic, and the fascia was closed with 0 Vicryl in a running fashion. The subcutaneous layer was then approximately with 3-0 Vicryl in a subcutaneous fashion. The skin was closed 4 0 Vicryl on a Ke[place] needle subcuticular fashion. Skin dermabond applied at incision. All instruments, needle, and lap counts were correct x3. The patient was taken to the recovery room in stable condition. Estimated Blood Loss: 475 Urine Output: 900 Drains: No Packing: No Pathology: Yes ( placenta and cord) Complications: No immediate complications Condition: Stable Disposition: Floor Baby Date of : 11/24/24 Time of : 13:41 Gestational Age by Date: 37 gender: Female Weight (pounds): 5 Weight (ounces): 5 presentation: vertex position: Right Occiput Transverse Placenta delivery description: Manual Removal Cord Vessel Description: 3 Vessels, Nuchal Cord, Loose and Reduced ( manual)
--- NOTE | 2024-11-24 17:13 | PC.NURSE ---
Patient transferred to post room #285 via stretcher.. Support person present. Oriented to unit, room, information board, rooming in, admission packet and security measures. Patient verbalizes understanding.
[2024-11-24] MEDS: HYDROcodone/acetaminophen (*CRX) 10-325 MG TABLET 1 TAB PO (18:58)
[2024-11-24] MEDS: SIMETHICONE 80 MG TAB.CHEW PO (18:59)
[2024-11-24] MEDS: DOCUSATE SODIUM 100 MG CAPSULE PO (18:59)
[2024-11-24] MEDS: KETOROLAC 15 MG/ML VIAL (*BKC) IV PUSH (19:00)
[2024-11-24] MEDS: ACETAMINOPHEN 325 MG TABLET 650 MG PO (19:00)
--- NOTE | 2024-11-24 19:00 | PC.NURSE ---
1899- Received report from Nilsa RN that pt is receiving 2nd bag of pitocin at 75mL/hr due to magnesium running at 50 mL/hr at this time. Upon checking MAR it appears as if the second bag of pitocin was not scanned/documented as being started by the previous labor RN. Pitocin running at 75 mL/hr at this time with approx. 300mL left in the bag. Call made to charge nurse Litzy Zavaleta who stated that previous labor nurse is not here currently and to document findings as such.
--- NOTE | 2024-11-24 21:00 | PC.NURSE ---
2100 Discussed plans for feeding infant with mob at this time- she wants to pump now and feed what she gets to and feed formula through the night so she can rest. Education given on cleaning of pump parts/ pumping frequency and pt verbalized understanding.
[2024-11-24] MEDS: ceFAZolin 1 GM/NS 50 ML 1 GM/50 ML BAG IVPB (22:15)
--- NOTE | 2024-11-24 22:56 | PC.NURSE ---
Addendum entered by Veronica Romeo RN 11/25/24 06:07: Initial bag of pit from OR* Original Note: Upon consulting with supercharger repair supervisor Litzy Zavaleta pt has only received initial bag of pitocin from ER. Charge nurse to call OC MD to get further orders regarding 2nd bag of pitocin at this time. See provider communication assessment for further documentation.
--- NOTE | 2024-11-24 22:59 | PC.NURSE ---
2255- RN phoned MD to clarify IV medications orders. MD gave orders to run LR at 25mL/hr, pitocin at 50mL/hr and magnesium at 50mL/hr to total 125mL/hr IV fluids because of the magnesium running.
[2024-11-24] MEDS: LACTATED RINGERS 1,000 ML 25 ML IV CONT (23:45)
[2024-11-24] MEDS: OXYTOCIN 30 UNITS/NS 500 ML 30 UNITS/500 ML BAG 50 UNITS IV CONT (23:45)
[2024-11-25] VITALS (14 sets, daily range): BP systolic 107–158; BP diastolic 50–84; PULSE 75–95; RESP 16–19; TEMP 35.8–36.6; O2SAT 99–100
[2024-11-25] MEDS: ACETAMINOPHEN 325 MG TABLET 650 MG PO ×4 (00:40→19:55)
[2024-11-25] MEDS: KETOROLAC 15 MG/ML VIAL (*BKC) IV PUSH ×3 (00:40→14:19)
[2024-11-25] MEDS: MAGNESIUM SULF 20GM/WATER500ML 500 ML 50 MG IV CONT (02:12)
[2024-11-25] MEDS: LIDOCAINE 5% PATCH 1 PATCH TRANSDERM (04:00)
[2024-11-25] MEDS: ceFAZolin 1 GM/NS 50 ML 1 GM/50 ML BAG IVPB ×2 (05:28→12:54)
[2024-11-25 06:03] LABS: Basophils Percent Auto 0.2 % (0.2-1.2); Eosinophils Percent Auto 0.1 % (0-4.4); Hematocrit 21.6 % (37.0-47.0); Immature Granulocyte Absolute 0.19 K/mm3 (0.00-0.031); Immature Granulocyte Percent A 0.9 % (0-0.5); Lymphocytes Absolute Auto 2.93 K/mm3 (0.9-3.2); Lymphocytes Percent Auto 13.6 % (18.3-44.2); Mean Corpuscular HGB Conc 31.5 g/dl (32-36); Mean Corpuscular Hemoglobin 26.5 pg (26-34); Mean Platelet Volume 11.7 fl (7.4-10.4); Monocytes Absolute Auto 1.8 K/mm3 (0.1-0.6); Monocytes Percent Auto 8.4 % (2.6-8.5); Neutrophils Absolute Auto 16.6 K/mm3 (1.3-6.7); Neutrophils Percent Auto 76.8 % (45.5-73.1); Platelet Count Result 191 k/mm3 (150-375); Red Blood Count 2.57 M/mm3 (4.2-5.4); Red Cell Distribution Width 13.7 % (11.5-14.5); White Blood Count 21.6 K/mm3 (4.5-10.0)
[2024-11-25 07:18] LABS: Hemoglobin 6.8 g/dL (12.0-15.0)
--- NOTE | 2024-11-25 07:40 | PC.NURSE ---
Introductions were made, then consulted with patient to assess needs related to . Mother led the conversation with her?plans to feed?her infant and the?experience so far. Mother states that waking infant has been difficult and request help and tips to wake for feedings. Demonstrated undressing of infant and gentle stimulation - discussed other methods as well. was easy to wake and once placed to the breast was able to latch with minimal help. Feeding was done on the left breast in football position. Mother handles her infant great. Reviewed positioning and ear, shoulder, hip alignment, supporting the breast to facilitate a deep latch, asymmetrical latch (off-center), leading with the chin with a big, open, wide gape and body close to mother. Education given to the mother of how to visualize the suckling (with good rocking jaw motion), swallows (dropping of the lower jaw) and how to listen for drinking at the breast (the ka sound). Parents voiced understanding of information, demonstrated learning and will call if there is a request for assistance. Reported to the Primary RN.
[2024-11-25] MEDS: MULTIVIT/MIN/PREN/FOL AC/IRON TABLET 1 TAB PO (07:57)
[2024-11-25] MEDS: SIMETHICONE 80 MG TAB.CHEW PO ×3 (07:57→17:42)
[2024-11-25] MEDS: POLYSACCHARIDE IRON COMPLEX 150 MG CAPSULE PO ×2 (07:57→17:42)
[2024-11-25] MEDS: DOCUSATE SODIUM 100 MG CAPSULE PO ×2 (07:57→17:42)
[2024-11-25] MEDS: SODIUM CHLORIDE 0.9% IV 250 ML 30 ML IV CONT (12:53)
--- NOTE | 2024-11-25 14:03 | WPDANLDPN2 ---
Anes-Prog Note L&D Date/Time: 11/25/24 14:03 Comfortable throughout: section Neuraxial method: epidural Epidural/Spinal procedure site: clean & non-tender Neuro status: Neuro function grossly intact. Cardiovascular status: normal Respiratory status: normal Airway patency: baseline Mental status: baseline Post-Op hydration status: normal Vital Signs: Last Vital Signs Temp 36.6 C 11/25/24 12:30 Pulse 80 11/25/24 12:30 Resp 18 11/25/24 12:30 BP 108/56 L 11/25/24 12:30 Pulse Ox 100 11/25/24 12:30 O2 Del Method Room Air 11/22/24 18:00 Pain score (VAS): 0/10 I/O: Intake & Output 11/24/24 11/25/24 11/25/24 23:59 07:59 15:59 Intake Total 1100 50 591 Output Total 991 700 700 Balance 109 -650 -109 Post-procedural complaints: none Patient feedback: Patient satisfied with anesthetic care.
--- NOTE | 2024-11-25 14:04 | WPDANLDNPN2 ---
Anes-Prog Note L&D-Neuraxial Date/Time: 11/25/24 14:04 Neuraxial medications: epidural PF morphine Opiod-related complaints: none Patient feedback: Patient satisfied with post-operative pain management.
--- NOTE | 2024-11-25 15:06 | P.PNOB_ITS ---
OB - PN: Subj Subjective Date/time seen: 11/25/24 15:06 Interval history: She denies pain. She did sit up in a chair without problems. Denied any lightheadedness or dizziness no shortness of breath or chest pain. Denies scotomata right upper quadrant pain. Baby is doing well. Denies like pain. she did have an episode on arrival to the floor of large clot. The lochia has been minimal since then. Patient comments: pain well controlled OB - PN: Obj Data Labs 11/25/24 05:53 11/22/24 09:24 Labs: Laboratory Results - last 24 hr 11/25/24 11/25/24 05:53 07:42 WBC 21.6 H RBC 2.57 L Hgb 6.8 L* D Hct 21.6 L MCV 84.0 D MCH 26.5 MCHC 31.5 L RDW 13.7 Plt Count 191 MPV 11.7 H Immature Gran % (Auto) 0.9 H Neut % (Auto) 76.8 H Lymph % (Auto) 13.6 L [place] % (Auto) 8.4 Eos % (Auto) 0.1 Baso % (Auto) 0.2 Lymph # (Auto) 2.93 [place] # (Auto) 1.8 H Eos # (Auto) 0.0 Baso # (Auto) 0.0 Abs Immat Gran (auto) 0.19 H Absolute Neuts (auto) 16.6 H Absolute Nucleated RBC 0.000 Nucleated RBC % 0.0 Crossmatch See Detail OB - PN A/P Assessment and Plan (1) Delivery by section: Status: Acute Assessment and Plan: postop day 1. She is doing well. Routine postop care. (2) Gestational hypertension: Code(s): O13.9 - Gestational [-induced] hypertension without significant proteinuria, unspecified trimester Status: Acute Assessment and Plan: blood pressure is doing well. Magnesium discontinued this a.m.. Urine output good. (3) Severe anemia: Code(s): D64.9 - Anemia, unspecified Status: Acute Assessment and Plan: Asymptomatic. No signs of active bleeding. Suspect had some hypotonia after delivery which has resolved. Will give PRBC. Time Spent With Patient Time: Total time spent is greater than 50% in coordination of care (as documented) at patient's floor/unit and/or counseling patient: Exam 2 Const: General: comfortable and no acute distress Resp: Effort & Inspection: normal respiratory effort Auscultation: clear to auscultation bilaterally Cardio: Rate: regular rate Rhythm: regular rhythm GI: Other: Incision intact no drainage fundus below umbilicus firm bowel sounds present Psych: Mental Status: mental status grossly normal Affect: normal affect
--- NOTE | 2024-11-25 15:11 | P.DS_ITS ---
DS: Admitting Diagnosis Discharge Date 11/27/24 Admitting Diagnosis Gestational hypertension with severe range blood pressures DS: Discharge Diagnosis Discharge Diagnosis (1) Delivery by section: Status: Acute (2) Gestational hypertension: Code(s): O13.9 - Gestational [-induced] hypertension without significant proteinuria, unspecified trimester Status: Acute (3) Severe anemia: Code(s): D64.9 - Anemia, unspecified Status: Acute (4) Failure of descent in labor, delivered, current hospitalization: Code(s): O62.2 - Other uterine inertia Status: Acute OB - DS: Summary Hospital Course Hospital Course: She was admitted for [facility] for gestational hypertension with severe range blood pressures. Cervidil was initiated for 12 hours. Pitocin was started. She had assisted rupture of membranes. She had a protracted latent phase labor. On the morning of 430 she did dilate to complete. She pushed for 2 hours without descent. And she underwent a primary low transverse section for failure to descend. Surgery was uncomplicated. Blood pressures were mostly normal . She did have episode of large clots on arrival to floor and total EBL from and surgery 1045. Lochia minimal after that. Post op h/h 6.8/21.6. She was asymptomatic. She did receive two units of PRBC on post op day 1. She denies PIH symptoms . Magnesium was discontinued after approximately 12 hours. Blood pressures were normal. Post op day 2 h/h was 8.2/24.8 OB Procedures : NST and Ultrasound OB Procedures Intrapartum: OB Procedures: : None Peripartum Data Infant Delivery Method: Section Procedures: Procedures Operation Date: 11/24/24 12:30 Actual Procedure Side Surgeon p Section Pavel Peñaloza MD complications: transfusion Status at Discharge Functional status at discharge: independent ambulation Time Spent with Patient Time attestation: Total time spent providing and/or coordinating discharge services: Exam Const: General: cooperative Orientation/consciousness: oriented to person, oriented to place and oriented to time HENMT: Face/Nose/Sinus: Normal external nose present Eyes: General: appearance normal, both eyes and all related structures Resp: Effort & Inspection: normal respiratory effort GI: Inspection: normal to inspection Skin: General skin exam: normal color Neuro: General: oriented to person, oriented to place and oriented to time Extrem: General: normal to inspection and no calf tenderness Psych: Appearance: grossly normal DS: Data Data Completed and Pending Labs on day of discharge: Labs from last 24 hours 11/25/24 11/25/24 07:42 05:53 WBC 21.6 H RBC 2.57 L Hgb 6.8 L* D Hct 21.6 L MCV 84.0 D MCH 26.5 MCHC 31.5 L RDW 13.7 Plt Count 191 MPV 11.7 H Immature Gran % (Auto) 0.9 H Neut % (Auto) 76.8 H Lymph % (Auto) 13.6 L [place] % (Auto) 8.4 Eos % (Auto) 0.1 Baso % (Auto) 0.2 Lymph # (Auto) 2.93 [place] # (Auto) 1.8 H Eos # (Auto) 0.0 Baso # (Auto) 0.0 Abs Immat Gran (auto) 0.19 H Absolute Neuts (auto) 16.6 H Absolute Nucleated RBC 0.000 Nucleated RBC % 0.0 Crossmatch See Detail Discharge Plan Discharge Attending physician on discharge: Pavel Peñaloza Consulting providers: Yue Stanford Patient Disposition: Home Activity: may shower, no straining and no driving Diet: regular Patient Instructions: Antibiotic Form Patient Language: Pashto Stand Alone Forms: General Discharge Information Follow-up/Referrals: Pavel Peñaloza MD [Physician] - 2 Weeks Discharge Medications: New hydrocodone-acetaminophen 5-325 mg Tablet 1 tablet PO Q3H PRN (Reason: Breakthrough Pain Rated 4-6) Qty: 20 0RF No Action aspirin 81 mg Tablet 81 mg PO DAILY PNV #[id number]-evbdk acid-omega3 30 mg iron-10 mg iron-1 mg capsule 1 cap PO DAILY ferrous sulfate 325 mg (65 mg iron) tablet 325 mg PO DAILY (DME) Dexcom G7 Sensor Device See Rx Instructions .Route Qty: 1 4RF Rx Instructions: As directed Date of admission: 11/22/24 09:11 Primary Care Provider: UNKNOWN,DOCTOR Admitting Provider: Pavel Peñaloza Attending physician on admission: Pavel Peñaloza Condition: Stable
[2024-11-25] MEDS: IBUPROFEN 600 MG TABLET PO (19:55)
[2024-11-26] MEDS: ACETAMINOPHEN 325 MG TABLET 650 MG PO ×4 (02:02→18:48)
[2024-11-26] MEDS: IBUPROFEN 600 MG TABLET PO ×4 (02:03→18:48)
[2024-11-26 03:35] VITALS: BP 112/67; PULSE 81; RESP 16; TEMP 36.7; O2SAT 98
[2024-11-26 05:18] LABS: Hematocrit 24.8 % (37.0-47.0); Hemoglobin 8.2 g/dL (12.0-15.0); Mean Corpuscular HGB Conc 33.1 g/dl (32-36); Mean Corpuscular Hemoglobin 26.9 pg (26-34); Mean Corpuscular Volume 81.3 fl (80-100); Mean Platelet Volume 11.9 fl (7.4-10.4); Platelet Count Result 189 k/mm3 (150-375); Red Blood Count 3.05 M/mm3 (4.2-5.4); Red Cell Distribution Width 14.7 % (11.5-14.5); White Blood Count 14.2 K/mm3 (4.5-10.0)
[2024-11-26 08:05] VITALS: BP 149/73; PULSE 74; RESP 16; TEMP 36.7; O2SAT 99
--- NOTE | 2024-11-26 08:48 | P.PNOB_ITS ---
OB - PN: Subj Subjective Date/time seen: 11/26/24 08:48 Interval history: She denies pain. She has ambulated. Positive flatus and bowel movement. She has tolerated regular diet. Denies lightheadedness or dizziness. No leg pain. OB - PN: Obj Data Labs 11/26/24 04:18 11/22/24 09:24 Labs: Laboratory Results - last 24 hr 11/25/24 11/26/24 07:42 04:18 WBC 14.2 H RBC 3.05 L Hgb 8.2 L Hct 24.8 L MCV 81.3 MCH 26.9 MCHC 33.1 RDW 14.7 H Plt Count 189 MPV 11.9 H Crossmatch See Detail OB - PN A/P Assessment and Plan (1) Delivery by section: Status: Acute Assessment and Plan: POD2. Doing well. Routine post c.s care. Bp normal. (2) Severe anemia: Code(s): D64.9 - Anemia, unspecified Status: Acute Assessment and Plan: Asymptomatic. H/H increased appropriately post transfusion. Time Spent With Patient Time: Total time spent is greater than 50% in coordination of care (as documented) at patient's floor/unit and/or counseling patient: Exam 2 Const: General: comfortable and no acute distress Resp: Effort & Inspection: normal respiratory effort GI: Other: decreased bowel sounds, mildly distended, incision no drainage or erythema, intact Extrem: General: no calf tenderness bilaterally (2+ pedal edema) Psych: Mental Status: mental status grossly normal Affect: normal affect
[2024-11-26] MEDS: SIMETHICONE 80 MG TAB.CHEW PO ×3 (09:19→17:47)
[2024-11-26] MEDS: MULTIVIT/MIN/PREN/FOL AC/IRON TABLET 1 TAB PO (09:19)
[2024-11-26] MEDS: DOCUSATE SODIUM 100 MG CAPSULE PO ×2 (09:19→17:47)
[2024-11-26] MEDS: POLYSACCHARIDE IRON COMPLEX 150 MG CAPSULE PO ×2 (09:19→17:47)
[2024-11-26] MEDS: TETANUS,DIPHTHERIA,AC PERTUSSIS ADULT (0.5 ML) BOOSTRIX IM (09:20)
--- NOTE | 2024-11-26 09:30 | PC.NURSE ---
Met with patient regarding . Baby is 37 weeks and had been very sleepy at breast. Encouraged mom that this is expected in babies born a little early. She reviewed the need to practice at breast every feeding so baby is familiar with breast as well as bottle feeding. She is currently pumping and supplementing after each attempt. Reviewed the [id number] feeding plan with parents and the need for continued supplementation until baby is able to feed effectively at the breast. We reviewed nutritive vs. nonnutritive suckling and how to identify them. Mother was also given the handout on hand expression and encouraged to use that to express drops of milk onto baby's lips when trying to initiate a feeding. We also opened a bottle of formula to entice baby to latch and suckle. Baby latches with effort in football hold. There is minimal suckling while baby maintains the latch. Mom seems comfortable with the feeding plan and continuing to pump and supplement until baby grows and wakes a little more. RN updated.
[2024-11-26 12:45] VITALS: BP 101/51; PULSE 80; RESP 16; TEMP 36.9; O2SAT 98
[2024-11-26 15:50] VITALS: BP 152/90
[2024-11-26 18:45] VITALS: BP 148/88; PULSE 84; RESP 18; TEMP 36.7; O2SAT 100
[2024-11-26 22:40] VITALS: BP 144/87; PULSE 80
[2024-11-27] MEDS: ACETAMINOPHEN 325 MG TABLET 650 MG PO ×2 (00:46→09:02)
[2024-11-27] MEDS: IBUPROFEN 600 MG TABLET PO ×2 (00:46→09:02)
[2024-11-27 04:40] VITALS: BP 148/89; PULSE 96
[2024-11-27 07:44] VITALS: BP 149/91; PULSE 77; RESP 14; TEMP 36.9; O2SAT 100
[2024-11-27] MEDS: SIMETHICONE 80 MG TAB.CHEW PO (09:02)
[2024-11-27] MEDS: MULTIVIT/MIN/PREN/FOL AC/IRON TABLET 1 TAB PO (09:02)
[2024-11-27] MEDS: POLYSACCHARIDE IRON COMPLEX 150 MG CAPSULE PO (09:02)
[2024-11-27] MEDS: DOCUSATE SODIUM 100 MG CAPSULE PO (09:02)
--- NOTE | 2024-11-27 09:35 | PC.NURSE ---
Met with patient regarding needs. She feels like her milk is in today and just pumped 30ml. She has mostly pumped and bottle fed. We reviewed how breast milk will digest faster than formula so as baby moves to eating more breast milk she may want to eat more frequently. Patient is comfortable with continuing feeding baby at home and knows that the Services are available to her after discharge. No further concerns. RN updated.
--- NOTE | 2024-11-27 12:19 | P.DS_ITS ---
DS: Admitting Diagnosis Discharge Date 11/27/2024 Admitting Diagnosis DS: Discharge Diagnosis Discharge Diagnosis (1) , delivered: Code(s): O80 - Encounter for full-term uncomplicated delivery Status: Acute OB - DS: Summary Hospital Course Hospital Course: She was admitted for [facility] for gestational hypertension with severe range blood pressures. Cervidil was initiated for 12 hours. Pitocin was started. She had assisted rupture of membranes. She had a protracted latent phase labor. On the morning of 430 she did dilate to complete. She pushed for 2 hours without descent. And she underwent a primary low transverse section for failure to descend. Surgery was uncomplicated. Blood pressures were mostly normal . She did have episode of large clots on arrival to floor and total EBL from and surgery 1045. Lochia minimal after that. Post op h/h 6.8/21.6. She was asymptomatic. She did receive two units of PRBC on post op day 1. She denies PIH symptoms . Magnesium was discontinued after approximately 12 hours. Blood pressures were normal. Post op day 2 h/h was 8.2/24.8 OB Procedures : None OB Procedures Intrapartum: OB Procedures: : None Peripartum Data Procedures: Procedures Operation Date: 11/24/24 12:30 Actual Procedure Side Surgeon p Section Pavel Peñaloza MD Time Spent with Patient Time attestation: Total time spent providing and/or coordinating discharge services: DS: Data Data Completed and Pending Pending studies at discharge: Pending at discharge 11/26/24 10:55 Surgical [PTH] Routine Discharge Plan Discharge Attending physician on discharge: Pavel Peñaloza Consulting providers: Yue Stanford Discharging Clinician: Jeffery Mendes Patient Disposition: Home Activity: may shower, no straining and no driving Diet: regular Patient Instructions: Antibiotic Form Patient Language: Pashto Stand Alone Forms: General Discharge Information Follow-up/Referrals: Pavel Peñaloza MD [Physician] - 2 Weeks Discharge Medications: New hydrocodone-acetaminophen 5-325 mg Tablet 1 tablet PO Q3H PRN (Reason: Breakthrough Pain Rated 4-6) Qty: 20 0RF ibuprofen 600 mg Tablet 600 mg PO Q6H Qty: 30 0RF Continued PNV #[id number]-dsdrh acid-omega3 30 mg iron-10 mg iron-1 mg capsule 1 cap PO DAILY ferrous sulfate 325 mg (65 mg iron) tablet 325 mg PO DAILY (DME) Dexcom G7 Sensor Device See Rx Instructions .Route Qty: 1 4RF Rx Instructions: As directed Discontinued aspirin 81 mg Tablet 81 mg PO DAILY Date of admission: 11/22/24 09:11 Primary Care Provider: UNKNOWN,DOCTOR Admitting Provider: Pavel Peñaloza Attending physician on admission: Pavel Peñaloza Condition: Stable
[2024-11-29 09:29] VITALS: BP 151/95; PULSE 75; RESP 18; TEMP 36.7; O2SAT 100
== END 2024-11-27 13:20 | disposition home or self-care (01) | DRG 788 ==
LOC: ANHOBOP 09:13 → ANHOBPP 09:19 → ANHLDR 11:52 → ANHOBOP 11:53 → ANHLDR 11:53 → ANHOB2 11-24 17:17
PROVIDERS: Admitting Provider Obstetrics & Gynecology; Visit Provider Obstetrics & Gynecology
PROC: 10D00Z1 Extraction of Products of Conception, Low, Open Approach (ICD-10-PCS; CPT 59514; principal; 2024-11-24 12:30)
DX: O13.4 Gestational [pregnancy-induced] hypertension without significant proteinuria, complicating childbirth (principal); O14.94 Unspecified pre-eclampsia, complicating childbirth; O24.420 Gestational diabetes mellitus in childbirth, diet controlled; Z37.0 Single live birth; Z3A.37 37 weeks gestation of pregnancy; O36.8330 Maternal care for abnormalities of the fetal heart rate or rhythm, third trimester, not applicable or unspecified; O62.2 Other uterine inertia; O99.824 Streptococcus B carrier state complicating childbirth; O90.81 Anemia of the puerperium; D64.9 Anemia, unspecified
CPT/HCPCS: 36415; 36430; 59025; 80053; 81001; 82570; 82948; 84156; 84550; 85025; 85027; 86593; 86703; 86850; 86900; 86901; 86923; 88307; 90715; 99199; A9270; G0432; J0290; J0456; J0690; J1100; J1200; J1885; J2003; J2250; J2270; J2274; J2371; J2405; J2590; J2795; J3010; J3475; J7050; J7120; P9016

== ENCOUNTER 2024-11-29 09:47 | Outpatient (CLI) | payer OTHER, SELFPAY ==
[2024-11-29 10:16] VITALS: BP 148/88; PULSE 78
[2024-11-29 10:30] LABS: Basophils Absolute Auto 0.1 K/mm3 (0.0-0.1); Basophils Percent Auto 0.3 % (0.2-1.2); Eosinophils Absolute Auto 0.4 K/mm3 (0-0.3); Eosinophils Percent Auto 2.7 % (0-4.4); Hematocrit 28.7 % (37.0-47.0); Hemoglobin 8.9 g/dL (12.0-15.0); Immature Granulocyte Absolute 0.31 K/mm3 (0.00-0.031); Immature Granulocyte Percent A 2.2 % (0-0.5); Lymphocytes Absolute Auto 3.33 K/mm3 (0.9-3.2); Lymphocytes Percent Auto 23.2 % (18.3-44.2); Mean Corpuscular Hemoglobin 26.1 pg (26-34); Mean Corpuscular Volume 84.2 fl (80-100); Mean Platelet Volume 10.5 fl (7.4-10.4); Monocytes Absolute Auto 0.9 K/mm3 (0.1-0.6); Monocytes Percent Auto 6.6 % (2.6-8.5); Neutrophils Absolute Auto 9.3 K/mm3 (1.3-6.7); Nucleated Red Blood Cells Perc 0.1 % (0.0-0.2); Platelet Count Result 284 k/mm3 (150-375); Red Blood Count 3.41 M/mm3 (4.2-5.4); Red Cell Distribution Width 14.6 % (11.5-14.5); White Blood Count 14.3 K/mm3 (4.5-10.0)
[2024-11-29 10:31] VITALS: BP 140/75; PULSE 71
--- OUTSIDE RECORDS SUMMARY | 2024-11-29 10:37 | XMS_ITS | Clinical Summary ---
Author Organization [facility] Address [address] [place] [address] Phone Care Team Providers Care Congressional Representative Name Role Phone Unavailable Primary Care Provider Unavailabl e Encounters Date Type Department Care Team Description 11/18/2024 3:00 PM CDT - 11/18/2024 11:59 PM CDT Hospital Encounter [facility] [address] [place] [address] Cameron Mendoza MD Discharge Disposition: Home or Self Care 11/09/2024 External Device Data STL ABSTRACTION Provider, Abstract 10/15/2024 2:52 PM CDT - 10/15/2024 11:59 PM CDT Hospital Encounter [facility] Maternal and Ground [facility] [address] [facility] [address] [place] [phone] Natalie Leon MD Kraus, Elena Marie, MD Discharge Disposition: Home or Self Care 10/13/2024 External Device Data STL ABSTRACTION Provider, Abstract 10/13/2024 External Device Data STL ABSTRACTION Provider, Abstract 10/02/2024 External Device Data STL ABSTRACTION Provider, Abstract 10/01/2024 External Device Data STL ABSTRACTION Provider, Abstract 09/28/2024 External Device Data STL ABSTRACTION Provider, Abstract 09/27/2024 1:25 PM DENTAL SECRETARY - 09/27/2024 11:59 PM DENTAL SECRETARY Hospital Encounter [facility] Maternal and Ground Floor [facility] [address] [place] [address] Yue Mullins MD Discharge Disposition: Home or Self Care 09/16/2024 3:30 PM DENTAL SECRETARY - 09/16/2024 11:59 PM DENTAL SECRETARY Hospital Encounter [facility] [place] [address] [place] [address] Cameron Mendoza MD Discharge Disposition: Home or Self Care 09/16/2024 Orders Only [facility] Maternal and Ground [facility] [address] [place] [place] [address] Pavel Frye MD IUGR (intrauterine growth restriction) affecting care of mother, second trimester, fetus 2 (Primary Dx) 2024 External Device Data STL ABSTRACTION Provider, Abstract from Last 3 Months Social History Tobacco Use Types Packs/Day Years Used Date Smoking Tobacco: Never Assessed Comments Unknown Sex and Gender Information Value Date Recorded Sex Assigned at Not on file Legal Sex Female 7:28 AM DENTAL SECRETARY Gender Identity Not on file Sexual Orientation [...] + UMB ART Routine 09/27/2024 2:45 PM DENTAL SECRETARY IUGR (intrauterine growth restriction) affecting care of mother, second trimester, fetus 1 US OB FOLLOW UP PER FETUS Routine 09/16/2024 4:09 PM DENTAL SECRETARY Obesity affecting in third trimester, unspecified obesity [...] ELMORE Study Date: 11/18/2024 3:18pm Pat. NO: [id number] Referring MD: PAVEL FRYE MD Site: [place] [employer] Reworker: Giana Dai RDMS : 2000 Age: 24 ----- INDICATION ----- Screening Follow-Up Maternal Obesity (BMI>40) Complicating CODING ----- Diagnoses Z3A.37: Weeks of gestation Z36.2: Encounter for other screening follow-up O99.213: Obesity complicating Z3A.37: Weeks of gestation O99.213: Obesity complicating Procedures 72546: Ultrasound, uterus, real time with image documentation, [...] 5 lb 15 oz EFW by Hadlock ([id number]) Extremities / Bony Struc Biometry: FL / [...] and date of were verified by the accounts payables clerk prior to the exam IMPRESSION ----- 1. [...] Khadijah. Name:Elicia ELMORE Date:11/18/2024 3:18pm Pat. NO: [id number] MD:PAVEL FRYE [facility] Dai RDMS :2000Age:24 ----- INDICATION ----- Screening Follow-Up Maternal Obesity (BMI>40) Complicating CODING ----- Diagnoses Z3A.37: Weeks of gestation Z36.2: Encounter for other screeningfollow-up O99.213: Obesity complicating Z3A.37: Weeks of gestation O99.213: Obesity complicating Procedures 93715: Ultrasound, uterus, real time withimage documentation, follow [...] d TONY by LMP:12/09/2024 GA by prior [email or web address] w + 0 d TONY by prior [...] 5 lb 15 oz EFW by Hadlock ([id number]) Extremities / Bony Struc Biometry: FL / [...] and date of were verified by the accounts payables clerk prior tothe exam IMPRESSION ----- 1. Single [...] UP + UMB ART (09/27/2024 2:45 PM DENTAL SECRETARY) Anatomical Region Laterality Modality Pelvis Ultrasound 09/27/2024 2:17 PM DENTAL SECRETARY Narrative 09/27/2024 3:08 PM DENTAL SECRETARY STL FOLLOW UP ----- Pat. Name: MARY ELMORE Study Date: 09/27/2024 2:17pm Pat. NO: [id number] Referring MD: PAVEL FRYE MD Site: [facility] [employer] Reworker: Kalani Dai RDMS : 2000 Age: 24 ----- INDICATION ----- Maternal Obesity (BMI>40) Complicating Screening Follow-Up CODING ----- Diagnoses Z3A.29: Weeks of gestation Z36.2: Encounter for other screening follow-up O99.213: Obesity complicating Procedures 46913: Ultrasound, uterus, real time with image documentation, follow up, transabdominal approach per fetus 07937: Doppler velocimetry, ; umbilical artery HISTORY ----- [...] 2 lb 12 oz EFW by Hadlock ([id number]) Extremities / Bony Struc Biometry: FL / [...] and date of were verified by the accounts payables clerk prior to the exam IMPRESSION ----- [place] [...] Procedure Note Natalie Leon MD - 09/27/2024 [facility] FOLLOW UP ----- Pat. Name:Ramses ELMOREmiguelito Date:09/27/2024 2:17pm Pat. NO: [id number] MD:PAVEL FRYE [facility]Kalani D[facility] RDMS :2000Age:24 ----- INDICATION ----- Maternal Obesity (BMI>40) Complicating Screening Follow-Up CODING ----- Diagnoses Z3A.29: Weeks of gestation Z36.2: Encounter for other screeningfollow-up O99.213: Obesity complicating Procedures 50200: Ultrasound, uterus, real time withimage documentation, follow up, transabdominal approach per fetus 56228: Doppler velocimetry, ; umbilicalartery HISTORY ----- OB History 1. Para 0 MATERNAL ASSESSMENT ----- Physical Exam Initial weight 95 kg, 210 lb. Initial BMI 41.01kg/m METHOD ----- Transabdominal ultrasound examination ----- [place] . Number of fetuses: 1 DATING ----- LMP on:03/04/2024 GA by [email or web address] w + 4 d TONY by LMP:12/09/2024 GA by prior [email or web address] w + 4 d TONY by prior [...] 2 lb 12 oz EFW by Hadlock ([id number]) Extremities / Bony Struc Biometry: [place] / [...] and date of were verified by the accounts payables clerk prior tothe exam IMPRESSION ----- [place] @ [...] Resul t from Last 3 Months Insurance [facility] [id number]
[2024-11-29 10:40] LABS: Alanine Aminotransferase 56 U/L (6-35); Albumin Level 3.2 g/dL (3.5-5.1); Alkaline Phosphatase 145 U/L (38-126); Anion Gap 7 mmol/L (4-12); Aspartate Amino Transferase 38 U/L (14-36); Bilirubin,Total 0.2 mg/dL (0.2-1.3); Blood Urea Nitrogen 10 mg/dL (7-17); Calcium 8.7 mg/dL (8.4-10.2); Carbon Dioxide 25 mmol/L (22-30); Chloride 105 mmol/L (98-107); Estimated Glomerular Filt Rate > 60; Glucose 85 mg/dL (65-110); Potassium 4.2 mmol/L (3.4-5.0); Sodium 137 mmol/L (137-145)
[2024-11-29 10:46] VITALS: BP 145/82; PULSE 73
--- NOTE | 2024-11-29 10:58 | PC.NURSE ---
Dr Peñaloza informed of BP's and lab results. Elizabeth dc home with PIH precautions and RX for Procardia 30mg XL.
[2024-11-29 11:01] VITALS: BP 154/80; PULSE 74
--- NOTE | 2024-11-29 11:44 | PC.NURSE ---
Silviano David notified of lab results and BP's. Ok to dc home with precautions.
== END 2024-11-29 11:05 | disposition home or self-care (01) ==
LOC: ANHOBOP 09:54 → ANHOBPP 10:07
PROVIDERS: Visit Provider Obstetrics & Gynecology
DX: O13.9 Gestational [pregnancy-induced] hypertension without significant proteinuria, unspecified trimester (principal); Z3A.00 Weeks of gestation of pregnancy not specified
CPT/HCPCS: 36415; 80053; 84550; 85025; 99199

== ENCOUNTER 2024-12-24 10:57 | Emergency (ER) | payer OTHER, SELFPAY ==
[2024-12-24 11:02] VITALS: BP 138/75; PULSE 78; RESP 16; TEMP 36.5; O2SAT 100
--- OUTSIDE RECORDS SUMMARY | 2024-12-24 11:10 | XMS_ITS | Clinical Summary ---
Author Organization [facility] Address [address] [place] [address] Phone Care Team Providers Care Chief Innovation Officer Name Role Phone Unavailable Primary Care Provider Unavailabl e Encounters Date Type Department Care Team Description 12/16/2024 External Device Data STL ABSTRACTION Provider, Abstract 12/16/2024 External Device Data STL ABSTRACTION Provider, Abstract 12/15/2024 External Device Data STL ABSTRACTION Provider, Abstract 12/14/2024 External Device Data STL ABSTRACTION Provider, Abstract 11/18/2024 3:00 PM CDT - 11/18/2024 11:59 PM CDT Hospital Encounter [facility] Maternal and [facility] [address] [place] [address] Cameron Mendoza MD Discharge Disposition: Home or Self Care 11/09/2024 External Device Data STL ABSTRACTION Provider, Abstract 10/15/2024 2:52 PM CDT - 10/15/2024 11:59 PM CDT Hospital Encounter [facility] Maternal and [facility] Floor [address] [facility] [address] [place] [phone] Natalie Leon MD Kraus, Heaven Jansen MD Discharge Disposition: Home or Self Care 10/13/2024 External Device Data STL ABSTRACTION Provider, Abstract 10/13/2024 External Device Data STL ABSTRACTION Provider, Abstract 10/02/2024 External Device Data STL ABSTRACTION Provider, Abstract 10/01/2024 External Device Data STL ABSTRACTION Provider, Abstract 09/28/2024 External Device Data STL ABSTRACTION Provider, Abstract 09/27/2024 1:25 PM CUSTOMER CARE ASSOCIATE - 09/27/2024 11:59 PM CUSTOMER CARE ASSOCIATE Hospital Encounter [facility] Maternal and Ground Floor [address] [facility] [address] [facility] [place] [address] Yue Mullins MD Discharge Disposition: Home or Self Care from Last 3 Months Social History Tobacco Use Types Packs/Day Years Used Date Smoking Tobacco: Never Assessed Comments Unknown Sex and Gender Information Value Date Recorded Sex Assigned at Not on file Legal Sex Female 7:28 AM CUSTOMER CARE ASSOCIATE Gender Identity Not on file Sexual Orientation [...] + UMB ART Routine 09/27/2024 2:45 PM CUSTOMER CARE ASSOCIATE IUGR (intrauterine growth restriction) affecting care of mother, second trimester, fetus 1 from Last 3 Months Results * US OB FOLLOW UP PER FETUS (11/18/2024 3:38 PM CDT) Only the most recent of2 resultswithin the time period is included. Anatomical Region Laterality Modality Pelvis Ultrasound 11/18/2024 3:18 PM CDT Narrative 11/18/2024 3:39 PM CDT STL FOLLOW UP ----- Pat. Name: MARY ELMORE Study Date: 11/18/2024 3:18pm Pat. NO: [id number] Referring MD: LEIDY FRYE MD Site: [employer] Service Employee: Giana Dai RDMS : 2000 Age: 24 ----- INDICATION ----- Screening Follow-Up Maternal Obesity (BMI>40) Complicating CODING ----- Diagnoses Z3A.37: Weeks of gestation Z36.2: Encounter for other screening follow-up O99.213: Obesity complicating Z3A.37: Weeks of gestation O99.213: Obesity complicating Procedures 64169: Ultrasound, uterus, real time with image documentation, [...] 5 lb 15 oz EFW by Hadlock ([id number]) Extremities / Bony Struc Biometry: FL / [...] and date of were verified by the mirror fabrication supervisor prior to the exam IMPRESSION ----- 1. [...] MD - 11/18/2024 STL FOLLOW UP ----- Pat. Name:Elicia ELMORE Date:11/18/2024 3:18pm Pat. NO: [id number] MD:LEIDY FRYE MD [facility] Dai RDMS :2000Age:24 ----- INDICATION ----- Screening Follow-Up Maternal Obesity (BMI>40) Complicating CODING ----- Diagnoses Z3A.37: Weeks of gestation Z36.2: Encounter for other screeningfollow-up O99.213: Obesity complicating Z3A.37: Weeks of gestation O99.213: Obesity complicating Procedures 70252: Ultrasound, uterus, real time withimage documentation, follow [...] d TONY by LMP:12/09/2024 GA by prior [id number] w + 0 d TONY by prior [...] 5 lb 15 oz EFW by Hadlock ([id number]) Extremities / Bony Struc Biometry: FL / [...] and date of were verified by the mirror fabrication supervisor prior tothe exam IMPRESSION ----- 1. Single [...] UP + UMB ART (09/27/2024 2:45 PM CUSTOMER CARE ASSOCIATE) Anatomical Region Laterality Modality Pelvis Ultrasound 09/27/2024 2:17 PM CUSTOMER CARE ASSOCIATE Narrative 09/27/2024 3:08 PM CUSTOMER CARE ASSOCIATE STL FOLLOW UP ----- Pat. Name: MARY ELMORE Study Date: 09/27/2024 2:17pm Pat. NO: [id number] Referring MD: LEIDY FRYE MD Site: [facility] Service Employee: Kalani Dai RDMS : 2000 Age: 24 ----- INDICATION ----- Maternal Obesity (BMI>40) Complicating Screening Follow-Up CODING ----- Diagnoses Z3A.29: Weeks of gestation Z36.2: Encounter for other screening follow-up O99.213: Obesity complicating Procedures 48085: Ultrasound, uterus, real time with image documentation, follow up, transabdominal approach per fetus 74805: Doppler velocimetry, ; umbilical artery HISTORY ----- [...] 2 lb 12 oz EFW by Hadlock ([id number]) Extremities / Bony Struc Biometry: FL / [...] and date of were verified by the mirror fabrication supervisor prior to the exam IMPRESSION ----- Eubanks [...] Procedure Note Natalie Leon MD - 09/27/2024 ST FOLLOW UP ----- Pat. Name:Elicia ELMORE Date:09/27/2024 2:17pm Pat. NO: [id number] MD:LEIDY FRYE [facility]Kalani Dai RDMS :2000Age:24 ----- INDICATION ----- Maternal Obesity (BMI>40) Complicating Screening Follow-Up CODING ----- Diagnoses Z3A.29: Weeks of gestation Z36.2: Encounter for other screeningfollow-up O99.213: Obesity complicating Procedures 45796: Ultrasound, uterus, real time withimage documentation, follow up, transabdominal approach per fetus 56634: Doppler velocimetry, ; umbilicalartery HISTORY ----- OB History 1. Para 0 MATERNAL ASSESSMENT ----- Physical Exam Initial weight 95 kg, 210 lb. Initial BMI 41.01kg/m METHOD ----- Transabdominal ultrasound examination ----- Eubanks . Number of fetuses: 1 DATING ----- LMP on:03/04/2024 GA by [id number] w + 4 d TONY by LMP:12/09/2024 GA by prior w + 4 d TONY by prior [...] 2 lb 12 oz EFW by Hadlock ([id number]) Extremities / Bony Struc Biometry: FL / [...] and date of were verified by the mirror fabrication supervisor prior tothe exam IMPRESSION ----- Eubanks @ [...] Resul t from Last 3 Months Insurance [facility] [id number] Member Subscriber Plan / Payer (Ef fective 2024-Present) Name:MARY ELMORE Relation to Subscriber:Spouse Name:Bebeto Elmore Date of :2001 Address: [address] [place] [address] Payer ID:[id number] (NAIC) Type:HMO Address: [facility] [id number] [place] [id number]
--- NOTE | 2024-12-24 11:31 | ED.NECK ---
HPI - Neck Pain/Injury General Chief Complaint: Neck Pain/Injury Stated Complaint: Neck Pain Left Side Time Seen by Provider: 12/24/24 11:10 Source: patient and RN notes reviewed Mode of arrival: ambulatory Limitations: no limitations History of Present Illness HPI Narrative: 24-year-old female presents [facility] complaining of left neck pain for 1 week. Patient denies any apparent injuries or falls. Patient's 1st thought it was a swollen lymph node or related to a tonsil stone since she has a history of own. Patient says she has mild tenderness to palpation to the left lateral anterior neck area. She also reports pain with certain movements of her neck. Patient denies any upper respiratory symptoms, fever, cough, body aches, chills, difficulty breathing, swelling, or any other symptoms. She has been using Tylenol and ibuprofen for pain with some relief. Patient currently . Related Data Home Medications ?Medication ?Instructions ?Recorded ?Confirmed ?Last Taken ?Type vitamin#30 30 mg iron-10 1 cap PO DAILY 04/30/24 12/22/24 11/21/24 09:00 History mg iron-folic acid 1 mg-omg3 capsule ascorbic acid (vitamin C) 500 mg 500 mg PO DAILY 12/16/24 12/22/24 Unknown History tablet (Vitamin C) Allergies Allergy/AdvReac Type Severity Reaction Status Date / Time No Known Allergies Allergy Verified 12/22/24 10:05 Review of Systems Review of Systems: CONSTITUTIONAL: Denies fever, chills, or sweats. EYES: Denies visual changes, redness, or discharge. ENT: Denies rhinorrhea, congestion, sore throat, or otalgia. CARDIOVASCULAR: Denies chest pain, palpitations, or edema. RESPIRATORY: Denies cough or dyspnea. GASTROINTESTINAL: Denies abdominal pain, nausea, vomiting, or diarrhea. GENITOURINARY: Denies dysuria or hematuria. SKIN: Denies rash or itching. MUSCULOSKELETAL: Denies injury, back pain, joint pain, or myalgia. Positive for neck pain. NEUROLOGIC: Denies headache, numbness, or weakness. PSYCHIATRIC: Denies anxiety or depression. All other systems reviewed are negative, except as documented in HPI. COUNT INCLUDES THE [facility] Surgical History Surgical History Hx of section Family History Family History Other Patient denies significant medical history Social History Social History Smoking status: Never smoker Alcohol intake: never Substance use: never Do You Feel Safe in your Home?: Yes Lack of Transportation: No Lack of Food: Never True Current Housing: I Have Housing Concerned About Future Housing: No Difficulty Paying Gas/Electric Bills: No Difficulty Paying for Meds: No Currently Unemployed: No Education: Decline to Answer Difficulty w/ Childcare or Family Care: No Spiritual care concerns: No Comments At the time of my signature, I reviewed and agree with the nursing past medical, surgical, social, and family history. There is no relevant family history pertinent to the patient complaint. Exam Narrative: GENERAL: This is a well-nourished, well-developed adult, in no apparent distress. They are non ill-appearing, nontoxic appearing. HEAD: normocephalic, atraumatic. EYES: Sclera clear/white. Conjunctiva normal. Vision is grossly intact. Extraocular movements intact EARS: External ears normal, auditory canals clear and without drainage, TMs normal without perforation. Hearing grossly intact. NOSE: External nose normal with no obvious nasal discharge, nasal turbinates without redness, no rhinorrhea. THROAT: Mucous membranes moist, posterior pharynx clear, without erythema or swelling. Uvula midline. NECK: Neck supple, non-tender without lymphadenopathy, masses or thyromegaly. No cervical point tenderness, crepitus, step-offs. Mild tenderness to palpation to the anterior lateral side of the left neck. Pain is elicited to the area with turning her neck to the right and flexing her neck to the right otherwise movements are nontender. Normal range of motion to the neck. CARDIOVASCULAR: Regular rate and rhythm RESPIRATORY: Respiratory rate normal, respiratory effort nonlabored, no respiratory distress SKIN: warm, Dry, intact with no suspicious lesions or rash, good texture and turgor. NEURO: awake, alert, and oriented to person, place and time. There were no obvious focal neurologic abnormalities. EXTREMITIES: No joint tenderness, effusion, or edema noted. BACK: Nontender without deformity. No CVA tenderness. Course Course Emergency Course: Portions of this record may have been created with voice recognition software Level of Care: [facility] Care Visit Vital Signs Vital signs: Vital Signs Temperature 97.7 F 12/24/24 11:02 Pulse Rate 78 12/24/24 11:02 Respiratory Rate 16 12/24/24 11:02 Blood Pressure 138/75 12/24/24 11:02 Pulse Oximetry 100 12/24/24 11:02 Oxygen Delivery Room Air 12/24/24 11:02 Temperature 97.7 F 12/24/24 11:02 Pulse Rate 78 12/24/24 11:02 Respiratory Rate 16 12/24/24 11:02 Blood Pressure 138/75 12/24/24 11:02 Pulse Oximetry 100 12/24/24 11:02 Oxygen Delivery Room Air 12/24/24 11:02 Reviewed MDM - Neck Pain/Injury MDM Narrative Medical decision making narrative: Likely patient has a neck strain. Evidence of lymphadenopathy or evidence of infection or swelling. Patient cannot take muscle relaxers since she is breast-feeding. Advise conservative measures. Discussed physical exam findings. Advised supportive measures and signs/symptoms to go to the ER. Pt is appropriate for outpt treatment and f/u. Differential Diagnosis Differential diagnosis: Likely cervical radiculopathy, strain of neck muscle and other (Lymphadenopathy) Critical Care Time Critical Care Time Critical Care Time: No Discharge Plan Discharge Clinical Impression: Acute strain of neck muscle Qualifiers: Encounter type: initial encounter Qualified Code(s): S16.1XXA - Strain of muscle, fascia and tendon at neck level, initial encounter Patient Disposition: Home Condition: Stable Instructions: Neck Pain (ED) Additional Instructions: Apply ice or heat 15-20 minute intervals several times a day You may take Motrin 600mg -800mg every 8 hours, alternate with Tylenol 1000mg every 8 hours as needed Consider massage to help relax a muscle in your neck. Follow up with your primary care provider 1-2 week if her symptoms are not getting better. Developed any swelling, fevers, breathing problems, will difficulty swallowing, any other concerns please go to the ER immediately. Patient Language: Latvian Prescriptions: No Action PNV #[id number] 30 mg iron-10 mg iron-1 mg capsule 1 cap PO DAILY ascorbic acid (vitamin C) [Vitamin C] 500 mg tablet 500 mg PO DAILY Slynd 4 mg (28) tablet 4 mg PO DAILY Qty: 28 2RF Follow-up/Referrals: PHYSICIAN,PHOTOGRAPHIC MACHINE OPERATOR [Primary Care Provider] - Time of Disposition: 11:20
== END 2024-12-24 11:26 | disposition home or self-care (01) ==
DX: S16.1XXA Strain of muscle, fascia and tendon at neck level, initial encounter (principal); X58.XXXA Exposure to other specified factors, initial encounter
CPT/HCPCS: 99212; G0463

== ENCOUNTER 2025-06-14 15:08 | Outpatient (CLI) | payer BC, SELFPAY ==
[2025-06-14 15:40] LABS: Hematocrit 38.7 % (37.0-47.0); Hemoglobin 12.1 g/dL (12.0-15.0); Immature Granulocyte Percent A 0.4 % (0-0.5); Lymphocytes Absolute Auto 3.50 K/mm3 (0.9-3.2); Mean Corpuscular HGB Conc 31.3 g/dl (32-36); Mean Corpuscular Hemoglobin 23.9 pg (26-34); Mean Corpuscular Volume 76.3 fl (80-100); Nucleated Red Blood Cells Absolute Auto 0.000 K/mm3 (0.0-0.012); Nucleated Red Blood Cells Perc 0.0 % (0.0-0.2); Platelet Count Result 367 k/mm3 (150-375); Red Blood Count 5.07 M/mm3 (4.2-5.4); White Blood Count 14.3 K/mm3 (4.5-10.0)
[2025-06-14 15:50] LABS: Iron 38 ug/dL (37-170)
[2025-06-14 15:52] LABS: Alanine Aminotransferase 45 U/L (6-35); Albumin Level 4.6 g/dL (3.5-5.1); Alkaline Phosphatase 152 U/L (38-126); Anion Gap 9 mmol/L (4-12); Aspartate Amino Transferase 38 U/L (14-36); Bilirubin,Total 0.5 mg/dL (0.2-1.3); Blood Urea Nitrogen 10 mg/dL (7-17); Calcium 9.2 mg/dL (8.4-10.2); Carbon Dioxide 26 mmol/L (22-30); Chloride 102 mmol/L (98-107); Cholesterol 192 mg/dL (0-200); Estimated Glomerular Filt Rate > 60; Glucose 96 mg/dL (65-110); HDL Direct 41 mg/dL; Potassium 4.0 mmol/L (3.4-5.0); Sodium 137 mmol/L (137-145); Total Protein 8.4 g/dL (6.3-8.2); Triglycerides 142 mg/dL (<150)
[2025-06-14 15:59] LABS: Percent Iron Saturation 9 % (20-50)
[2025-06-14 16:09] LABS: Free T3 3.48 pg/mL (2.32-6.09); Free T4 Free Thyroxine 0.98 ng/dL (0.78-2.19)
[2025-06-14 16:20] LABS: Hemoglobin A1C 5.3 % (<5.7)
[2025-06-14 16:27] LABS: Thyroid Stimulating Hormone 1.830 uIU/mL (0.465-4.680)
[2025-06-14 16:32] LABS: Ferritin 13.10 ng/mL (6.24-137)
[2025-06-14 17:02] LABS: Vitamin B12 748.0 pg/mL (239-931)
--- OUTSIDE RECORDS SUMMARY | 2025-06-15 02:21 | XMS_ITS | Clinical Summary ---
Author Organization [facility] Address [address] [place] [phone] Phone Care Team Providers Care Salon Coordinator Name Role Phone Unavailable Primary Care Provider Unavailabl e Encounters Date Type Department Care Team Description 05/17/2025 External Device Data STL ABSTRACTION Provider, Abstract 04/12/2025 External Device Data STL ABSTRACTION Provider, Abstract from Last 3 Months Social History Tobacco Use Types Packs/Day Years Used Date Smoking Tobacco: Never Assessed Comments Unknown Sex and Gender Information Value Date Recorded Sex Assigned at Not on file Legal Sex Female 7:28 AM STEEL HEATER Gender Identity Not on file Sexual Orientation Not on file Plan of Treatment Health Maintenance Due Date Last Done Comments HPV VACCINES (1 - 3-dose series) 2014 DTAP/TDAP/TD VACCINES (1 - Tdap) 2018 HEPATITIS B VACCINES (1 of 3 - 19+ 3-dose series) 08/28 CERVICAL CANCER SCREENING 2020 HPV/Cotest (21-29) 2020 PAP SMEAR 2020 INFLUENZA VACCINE (#1) 2025 Insurance [employer] [id number]
== END 2025-06-14 15:09 | disposition home or self-care (01) ==
LOC: ANHLAB 15:11
PROVIDERS: PCP Nurse Practitioner Family; Visit Provider Nurse Practitioner Family
DX: E88.819 Insulin resistance, unspecified (principal); O13.9 Gestational [pregnancy-induced] hypertension without significant proteinuria, unspecified trimester; O24.419 Gestational diabetes mellitus in pregnancy, unspecified control; Z3A.00 Weeks of gestation of pregnancy not specified
CPT/HCPCS: 36415; 80053; 80061; 82607; 82728; 82746; 83036; 83540; 83550; 84439; 84443; 84481; 85025; 86376